=== PATIENT | female | born 1955 | race Caucasian/White ===

== ENCOUNTER 2019-01-23 16:56 | Inpatient (IN) | payer BC ==
[~2019-01-23] VITALS: Ht 170.2 cm; Wt 75.0 kg
[2019-01-23] MEDS ORDERED: AMLO10TA PO (17:32)
[2019-01-23] MEDS ORDERED: MULT1TAB74 PO (17:32)
[2019-01-23] MEDS ORDERED: METO50TA17 PO (17:32)
[2019-01-23] MEDS ORDERED: CLON0.1T PO (17:32)
[2019-01-23 17:50] LABS: ALANINE AMINOTRANSFERASE 30 U/L (12-78); ALBUMIN/GLOBULIN RATIO 0.6 (1.1-1.5); ALKALINE PHOSPHATASE 114 IU/L (46-116); ANION GAP 10 (8-16); ASPARTATE AMINO TRANSFERASE 23 U/L (10-37); BILIRUBIN,TOTAL 0.4 MG/DL (0.1-1.0); BLOOD UREA NITROGEN 6 MG/DL (7-18); BUN/CREATININE RATIO 11.1 (6.6-38.0); CALCIUM 9.5 MG/DL (8.5-10.1); CHLORIDE 92 MMOL/L (99-107); CREATININE 0.54 MG/DL (0.40-0.90); GLUCOSE 130 MG/DL (70-104); POTASSIUM 3.8 MMOL/L (3.5-5.1); SODIUM 126 MMOL/L (135-145); TOTAL CARBON DIOXIDE 23.6 MMOL/L (24-32); TOTAL PROTEIN 8.1 G/DL (6.4-8.2); eGFR > 90 ML/MIN
[2019-01-23] MEDS ORDERED: heparin 10,000 units/1 ML INJ IV PRN (17:50)
[2019-01-23] MEDS ORDERED: heparin 10,000 units/1 ML INJ IV ONE (17:50)
[2019-01-23 17:54] LABS: PARTIAL THROMBOPLASTIN TIME 31 SECONDS (22-32)
[2019-01-23 17:57] LABS: MAGNESIUM 1.7 MG/DL (1.5-2.4)
[2019-01-23] MEDS: heparin 25,000 UNIT/250ml bag 250 ML IV SCH (18:12)
[2019-01-23 18:13] LABS: BASOPHILS % (AUTO) 0.5 % (0-1); EOSINOPHILS % (AUTO) 0.1 % (0-6); HEMATOCRIT 38.1 % (35.0-45.0); HEMOGLOBIN 13.8 g/dl (12.0-16.0); LYMPHOCYTES # (AUTO) 1.5 X10'3 (1.1-4.8); LYMPHOCYTES % (AUTO) 16.3 % (21-51); MEAN CORPUSCULAR HEMOGLOBIN 33.9 PG (27.0-31.0); MEAN CORPUSCULAR HGB CONC 36.1 g/dL (33.0-36.5); MEAN CORPUSCULAR VOLUME 93.9 FL (78-98); MEAN PLATELET VOLUME 6.5 FL (7.4-10.4); MONOCYTES # (AUTO) 0.8 X10'3 (0-0.9); MONOCYTES % (AUTO) 9.1 % (2-12); NEUTROPHILS # (AUTO) 6.7 X10'3 (1.8-7.7); PLATELET COUNT 423 X10'3 (140-440); RED BLOOD COUNT 4.06 X10'6 (4.20-5.60); RED CELL DISTRIBUTION WIDTH 12.9 % (11.5-14.5)
[2019-01-23 18:58] LABS: PLATELET ESTIMATE NORMAL
[2019-01-23 18:59] LABS: POLYCHROMASIA FEW; SPHEROCYTES 2+
[2019-01-23] MEDS ORDERED: magnesium hydroxide 30ml (MOM) UD suspension PO PRN (19:35)
[2019-01-23] MEDS ORDERED: acetaminophen 325mg tablet PO PRN (19:35)
[2019-01-23] MEDS ORDERED: HYDROcodone/acetaminophen 5mg/325mg tablet PO PRN (19:35)
[2019-01-23] MEDS ORDERED: mag hydrox/Alum hydrox/simeth 30ml oral suspension PO PRN (19:35)
[2019-01-23] MEDS ORDERED: ondansetron/PF 4mg/2ml inj IV PRN (19:35)
[2019-01-23] MEDS ORDERED: morphine 2 MG/ML inj. syringe IV PRN (19:35)
[2019-01-23] MEDS: normal saline 1000ml 1,000 ML IV SCH ×2 (19:57→21:52)
[2019-01-23] MEDS ORDERED: non-formulary drug (Amlodipine Besylate 1 TABLET) PO SCH (21:00)
[2019-01-23] MEDS: amLODIPine 5mg tablet PO SCH (21:01)
[2019-01-23 21:30] VITALS: BP 172/73
[2019-01-23] MEDS: metoprolol tartrate 50mg tablet PO SCH (21:51)
--- NOTE | 2019-01-23 22:16 | NUR ---
RECEIVED PATIENT TO ROOM 4009C IN STABLE CONDITION. PATIENT HYPERTENSIVE. ADMINISTERED ORDERED DOSE OF LOPRESSOR. ASSISTED PATIENT STANDBY ASSIST TO BATHROOM AND BACK TO BED.
[2019-01-24] MEDS: heparin 25,000 UNIT/250ml bag 250 ML IV SCH (01:36)
[2019-01-24 05:00] VITALS: BP 174/72
--- NOTE | 2019-01-24 06:15 | NUR ---
Received patient report from Marina HERNANDEZ
--- NOTE | 2019-01-24 06:16 | NUR ---
REPORT GIVEN TO TRISTON HERNANDEZ
[2019-01-24 07:21] LABS: BASOPHILS # (AUTO) 0.1 X10'3 (0-0.2); BASOPHILS % (AUTO) 0.7 % (0-1); EOSINOPHILS % (AUTO) 0.5 % (0-6); LYMPHOCYTES # (AUTO) 1.7 X10'3 (1.1-4.8); LYMPHOCYTES % (AUTO) 16.8 % (21-51); MEAN CORPUSCULAR HEMOGLOBIN 33.2 PG (27.0-31.0); MEAN CORPUSCULAR VOLUME 94.8 FL (78-98); MEAN PLATELET VOLUME 6.5 FL (7.4-10.4); MONOCYTES # (AUTO) 1.2 X10'3 (0-0.9); MONOCYTES % (AUTO) 11.5 % (2-12); NEUTROPHILS # (AUTO) 7.2 X10'3 (1.8-7.7); NEUTROPHILS % (AUTO) 70.5 % (42-75); PLATELET COUNT 406 X10'3 (140-440); RED CELL DISTRIBUTION WIDTH 12.8 % (11.5-14.5); WHITE BLOOD COUNT 10.3 X10'3 (4.5-11.0)
[2019-01-24 07:35] LABS: ALANINE AMINOTRANSFERASE 28 U/L (12-78); ALBUMIN 2.8 G/DL (3.4-5.0); ALBUMIN/GLOBULIN RATIO 0.6 (1.1-1.5); ALKALINE PHOSPHATASE 108 IU/L (46-116); ANION GAP 11 (8-16); ASPARTATE AMINO TRANSFERASE 22 U/L (10-37); BILIRUBIN,TOTAL 0.3 MG/DL (0.1-1.0); BLOOD UREA NITROGEN 7 MG/DL (7-18); BUN/CREATININE RATIO 12.7 (6.6-38.0); CALCIUM 9.5 MG/DL (8.5-10.1); CHLORIDE 94 MMOL/L (99-107); CHOLESTEROL 169 MG/DL (0-200); CREATININE 0.55 MG/DL (0.40-0.90); GLUCOSE 135 MG/DL (70-104); HDL CHOLESTEROL 85 MG/DL (35-60); LDL CHOLESTEROL 68 MG/DL (50-100); POTASSIUM 3.7 MMOL/L (3.5-5.1); SODIUM 129 MMOL/L (135-145); TOTAL PROTEIN 7.8 G/DL (6.4-8.2); TRIGLYCERIDES 84 MG/DL (20-135); eGFR > 90 ML/MIN
--- NOTE | 2019-01-24 08:00 | NUR ---
PTT 60 no rate change in the heparin GTT.
[2019-01-24] MEDS: cloNIDine 0.1 mg tablet PO SCH (08:04)
[2019-01-24] MEDS: metoprolol tartrate 50mg tablet PO SCH ×2 (08:04→19:06)
[2019-01-24] MEDS ORDERED: midazolam 2 mg/2 ml injection IV PRN (09:50)
[2019-01-24] MEDS ORDERED: heparin 1,000 UNITS/NS 500ml 500 ML ICATH ONE (09:50)
[2019-01-24] MEDS ORDERED: fentaNYL/PF 50MCG/1 ML 2ML syringe IV PRN (09:50)
[2019-01-24] MEDS ORDERED: LIDOcaine 1%/PF 5ML 10 MG/ML VIAL SQ ONE (09:50)
[2019-01-24] MEDS ORDERED: LIDOcaine 1%/PF 5ML 10 MG/ML VIAL ONE ×3 (09:58→13:42)
[2019-01-24] MEDS ORDERED: iohexol 300mg/ml 100ml inj. ONE ×2 (09:58→12:07)
[2019-01-24] MEDS ORDERED: pneumococcal 23-VAL P-sac vacc 25 mcg/0.5ml vial IMVAC ONE (10:00)
[2019-01-24] MEDS ORDERED: heparin 1,000 UNITS/NS 500ml 500 ML ONE ×3 (10:14→13:22)
[2019-01-24] MEDS ORDERED: fentaNYL/PF 50MCG/1 ML 2ML syringe ONE ×2 (10:16→10:59)
[2019-01-24] MEDS ORDERED: midazolam 2 mg/2 ml injection ONE (10:16)
[2019-01-24] MEDS ORDERED: HYDROmorphone 1 mg/ml syringe ONE ×2 (11:33→12:28)
[2019-01-24] MEDS ORDERED: heparin 25,000 UNIT/250ml bag 250 ML IV ONE (12:07)
[2019-01-24] MEDS ORDERED: HYDROmorphone inj. 0.5 MG/0.5 ML DISP.SYRIN IV PRN (12:30)
--- NOTE | 2019-01-24 15:13 | NUR ---
Received patient from Angio. Angio called stated "R groin has no closure device, and L groin has a closure device."
--- NOTE | 2019-01-24 16:28 | NUR ---
Page to Dr. Muñiz MESSAGE: [id number] Melissa Jenkins Can I straight cath or place a morales in patient. She has to lay flat for 6 hours and currently is 999mls in bladder. Maria A Addendum: 01/24/19 at 1700 by Maria A Ko RN margie Lowe.
--- NOTE | 2019-01-24 17:00 | NUR ---
Page to Dr. Muñiz MESSAGE: [id number] Melissa Mojica I get a Lidocaine patch for the patient Maria A [id number] Addendum: 01/24/19 at 1700 by Maria A Ko RN Received orders
[2019-01-24 18:00] VITALS: BP 168/74
--- NOTE | 2019-01-24 18:26 | NUR ---
RECEIVED REPORT FROM TRISTON HERNANDEZ AND ASSUMED PATIENT CARE
--- NOTE | 2019-01-24 18:35 | NUR ---
Report to Marina HERNANDEZ
[2019-01-24] MEDS: piperacillin/tazo 3.375gm/50ml 50 ML IV SCH (18:44)
[2019-01-24] MEDS: LIDOcaine 5% patch TP SCH (19:06)
[2019-01-24] MEDS: amLODIPine 5mg tablet PO SCH (19:06)
[2019-01-24 22:00] VITALS: BP 161/73
--- NOTE | 2019-01-24 23:31 | NUR ---
NO RATE CHANGE REQUIRED FOR HEPARIN GTT AT THIS TIME
[2019-01-25] MEDS: piperacillin/tazo 3.375gm/50ml 50 ML IV SCH ×3 (00:53→15:44)
[2019-01-25] MEDS: HYDROcodone/acetaminophen 10/325mg tab PO PRN ×2 (04:42→13:57)
--- NOTE | 2019-01-25 05:10 | NUR ---
HEPARIN GTT THERAPEUTIC. NO RATE CHANGE.
[2019-01-25 05:34] LABS: ALANINE AMINOTRANSFERASE 34 U/L (12-78); ALBUMIN 2.9 G/DL (3.4-5.0); ALBUMIN/GLOBULIN RATIO 0.6 (1.1-1.5); ALKALINE PHOSPHATASE 109 IU/L (46-116); ANION GAP 11 (8-16); ASPARTATE AMINO TRANSFERASE 35 U/L (10-37); BILIRUBIN,TOTAL 0.3 MG/DL (0.1-1.0); BLOOD UREA NITROGEN 8 MG/DL (7-18); BUN/CREATININE RATIO 13.3 (6.6-38.0); CALCIUM 9.4 MG/DL (8.5-10.1); CHLORIDE 95 MMOL/L (99-107); GLUCOSE 128 MG/DL (70-104); POTASSIUM 3.5 MMOL/L (3.5-5.1); SODIUM 130 MMOL/L (135-145); TOTAL CARBON DIOXIDE 24.1 MMOL/L (24-32); TOTAL PROTEIN 7.9 G/DL (6.4-8.2); eGFR > 90 ML/MIN
[2019-01-25 05:40] LABS: BASOPHILS # (AUTO) 0.1 X10'3 (0-0.2); BASOPHILS % (AUTO) 0.9 % (0-1); EOSINOPHILS # (AUTO) 0.1 X10'3 (0-0.9); HEMATOCRIT 37.9 % (35.0-45.0); HEMOGLOBIN 13.1 g/dl (12.0-16.0); LYMPHOCYTES # (AUTO) 1.9 X10'3 (1.1-4.8); LYMPHOCYTES % (AUTO) 19.3 % (21-51); MEAN CORPUSCULAR HEMOGLOBIN 33.6 PG (27.0-31.0); MEAN CORPUSCULAR HGB CONC 34.6 g/dL (33.0-36.5); MEAN CORPUSCULAR VOLUME 96.9 FL (78-98); MEAN PLATELET VOLUME 6.5 FL (7.4-10.4); MONOCYTES # (AUTO) 0.9 X10'3 (0-0.9); MONOCYTES % (AUTO) 9.1 % (2-12); NEUTROPHILS % (AUTO) 69.7 % (42-75); PLATELET COUNT 368 X10'3 (140-440); RED BLOOD COUNT 3.91 X10'6 (4.20-5.60); RED CELL DISTRIBUTION WIDTH 12.6 % (11.5-14.5)
[2019-01-25 06:00] VITALS: BP 166/83
--- NOTE | 2019-01-25 06:13 | NUR ---
REPORT GIVEN TO RICCARDO HERNANDEZ
--- NOTE | 2019-01-25 06:30 | NUR ---
received report from shireen obando
[2019-01-25] MEDS: heparin 25,000 UNIT/250ml bag 250 ML IV SCH (08:37)
[2019-01-25] MEDS: cloNIDine 0.1 mg tablet PO SCH (08:39)
[2019-01-25] MEDS: metoprolol tartrate 50mg tablet PO SCH ×2 (08:39→20:37)
[2019-01-25] MEDS: LIDOcaine 5% patch TP SCH (08:43)
[2019-01-25 10:00] VITALS: BP 115/70
[2019-01-25] MEDS ORDERED: regadenoson 0.4mg/5ml syringe IV PRN (10:10)
[2019-01-25] MEDS ORDERED: nitroGLYCERIN 0.4mg SUBLingual tab SL PRN (10:10)
[2019-01-25] MEDS ORDERED: metoprolol tartrate 1mg/ml inj IV PRN (10:10)
[2019-01-25] MEDS ORDERED: aminophylline 250mg/10ml inj. IV PRN (10:10)
[2019-01-25 18:00] VITALS: BP 120/78
--- NOTE | 2019-01-25 18:22 | NUR ---
GAVE REPORT TO DAVID RAMOS
[2019-01-25] MEDS: normal saline 1000ml 1,000 ML IV SCH (19:31)
[2019-01-25] MEDS: amLODIPine 5mg tablet PO SCH (20:39)
[2019-01-25 23:00] VITALS: BP 162/62
[2019-01-26] VITALS (7 sets, daily range): BP systolic 123–159; BP diastolic 76–88
[2019-01-26] MEDS: heparin 25,000 UNIT/250ml bag 250 ML IV SCH ×2 (02:43→23:10)
[2019-01-26 05:57] LABS: BASOPHILS # (AUTO) 0.1 X10'3 (0-0.2); BASOPHILS % (AUTO) 0.7 % (0-1); EOSINOPHILS % (AUTO) 0.1 % (0-6); HEMATOCRIT 37.5 % (35.0-45.0); HEMOGLOBIN 12.9 g/dl (12.0-16.0); LYMPHOCYTES # (AUTO) 1.2 X10'3 (1.1-4.8); LYMPHOCYTES % (AUTO) 10.8 % (21-51); MEAN CORPUSCULAR HEMOGLOBIN 32.9 PG (27.0-31.0); MEAN CORPUSCULAR HGB CONC 34.4 g/dL (33.0-36.5); MEAN CORPUSCULAR VOLUME 95.7 FL (78-98); MEAN PLATELET VOLUME 6.6 FL (7.4-10.4); MONOCYTES # (AUTO) 0.8 X10'3 (0-0.9); MONOCYTES % (AUTO) 7.2 % (2-12); NEUTROPHILS # (AUTO) 8.9 X10'3 (1.8-7.7); NEUTROPHILS % (AUTO) 81.2 % (42-75); PLATELET COUNT 359 X10'3 (140-440); RED BLOOD COUNT 3.91 X10'6 (4.20-5.60); RED CELL DISTRIBUTION WIDTH 12.7 % (11.5-14.5)
[2019-01-26 06:13] LABS: ALANINE AMINOTRANSFERASE 33 U/L (12-78); ALBUMIN/GLOBULIN RATIO 0.6 (1.1-1.5); ALKALINE PHOSPHATASE 111 IU/L (46-116); ANION GAP 12 (8-16); ASPARTATE AMINO TRANSFERASE 32 U/L (10-37); BILIRUBIN,TOTAL 0.4 MG/DL (0.1-1.0); BLOOD UREA NITROGEN 7 MG/DL (7-18); BUN/CREATININE RATIO 11.5 (6.6-38.0); CALCIUM 9.6 MG/DL (8.5-10.1); CHLORIDE 95 MMOL/L (99-107); CREATININE 0.61 MG/DL (0.40-0.90); GLUCOSE 173 MG/DL (70-104); POTASSIUM 3.3 MMOL/L (3.5-5.1); SODIUM 130 MMOL/L (135-145); TOTAL CARBON DIOXIDE 22.8 MMOL/L (24-32); eGFR > 90 ML/MIN
[2019-01-26] MEDS: piperacillin/tazo 3.375gm/50ml 50 ML IV SCH ×3 (08:52→16:00)
[2019-01-26] MEDS: LIDOcaine 5% patch TP SCH (08:53)
[2019-01-26] MEDS: metoprolol tartrate 50mg tablet PO SCH ×2 (08:53→23:54)
[2019-01-26] MEDS: cloNIDine 0.1 mg tablet PO SCH (08:54)
[2019-01-26] MEDS ORDERED: LIDOcaine 1%/PF 5ML 10 MG/ML VIAL ONE (11:11)
[2019-01-26] MEDS ORDERED: iohexol 300mg/ml 100ml inj. ONE ×3 (11:12→18:32)
[2019-01-26] MEDS ORDERED: heparin 1,000 UNITS/NS 500ml 500 ML ONE ×4 (11:12→19:16)
[2019-01-26] MEDS ORDERED: fentaNYL/PF 50MCG/1 ML 2ML syringe ONE ×3 (11:23→15:11)
[2019-01-26] MEDS ORDERED: midazolam 2 mg/2 ml injection ONE ×2 (11:23→14:42)
[2019-01-26] MEDS ORDERED: midazolam 2 mg/2 ml injection IV PRN (13:50)
[2019-01-26] MEDS ORDERED: LIDOcaine 1%/PF 5ML 10 MG/ML VIAL SQ ONE (13:50)
[2019-01-26] MEDS ORDERED: heparin 1,000 UNITS/NS 500ml 500 ML ICATH ONE (13:50)
[2019-01-26] MEDS ORDERED: fentaNYL/PF 50MCG/1 ML 2ML syringe IV PRN (13:50)
[2019-01-26] MEDS ORDERED: HYDROmorphone 1 mg/ml syringe ONE ×3 (16:11→17:43)
[2019-01-26] MEDS ORDERED: heparin 1,000unit/ml 10ml vial 10 ML ONE (16:38)
[2019-01-26] MEDS ORDERED: ondansetron/PF 4mg/2ml inj ONE (17:22)
[2019-01-26] MEDS ORDERED: diphenhydrAMINE 50 mg/ml inj ONE (17:46)
--- NOTE | 2019-01-26 18:17 | NUR ---
PATIENT REPORT RECEIVED FROM VINCENZO HERNANDEZ.
[2019-01-26] MEDS ORDERED: nitroGLYCERIN-Tridil 50MG/D5W 250 ML IV ONE (19:20)
[2019-01-26] MEDS: lactobacillus rhamnosus 10,000 MMU CELLS/CAPSULE PO SCH (20:00)
[2019-01-26] MEDS: amLODIPine 5mg tablet PO SCH (23:54)
[2019-01-27] VITALS (16 sets, daily range): BP systolic 94–174; BP diastolic 56–85
[2019-01-27] MEDS: piperacillin/tazo 3.375gm/50ml 50 ML IV SCH ×3 (00:11→16:37)
[2019-01-27] MEDS: heparin 25,000 UNIT/250ml bag 250 ML IV SCH ×2 (00:17→16:36)
[2019-01-27 05:55] LABS: BASOPHILS # (AUTO) 0.1 X10'3 (0-0.2); BASOPHILS % (AUTO) 0.8 % (0-1); EOSINOPHILS % (AUTO) 0.1 % (0-6); HEMATOCRIT 33.6 % (35.0-45.0); HEMOGLOBIN 11.9 g/dl (12.0-16.0); LYMPHOCYTES # (AUTO) 1.4 X10'3 (1.1-4.8); LYMPHOCYTES % (AUTO) 11.3 % (21-51); MEAN CORPUSCULAR HEMOGLOBIN 33.7 PG (27.0-31.0); MEAN CORPUSCULAR HGB CONC 35.3 g/dL (33.0-36.5); MEAN CORPUSCULAR VOLUME 95.4 FL (78-98); MEAN PLATELET VOLUME 6.2 FL (7.4-10.4); MONOCYTES # (AUTO) 1.3 X10'3 (0-0.9); MONOCYTES % (AUTO) 11.1 % (2-12); NEUTROPHILS # (AUTO) 9.2 X10'3 (1.8-7.7); NEUTROPHILS % (AUTO) 76.7 % (42-75); PLATELET COUNT 341 X10'3 (140-440); RED BLOOD COUNT 3.52 X10'6 (4.20-5.60); RED CELL DISTRIBUTION WIDTH 12.8 % (11.5-14.5)
[2019-01-27 06:17] LABS: ALANINE AMINOTRANSFERASE 40 U/L (12-78); ALBUMIN 2.7 G/DL (3.4-5.0); ALBUMIN/GLOBULIN RATIO 0.5 (1.1-1.5); ALKALINE PHOSPHATASE 120 IU/L (46-116); ANION GAP 14 (8-16); ASPARTATE AMINO TRANSFERASE 66 U/L (10-37); BILIRUBIN,TOTAL 0.5 MG/DL (0.1-1.0); BLOOD UREA NITROGEN 7 MG/DL (7-18); BUN/CREATININE RATIO 10.9 (6.6-38.0); CALCIUM 9.3 MG/DL (8.5-10.1); CHLORIDE 98 MMOL/L (99-107); CREATININE 0.64 MG/DL (0.40-0.90); GLUCOSE 145 MG/DL (70-104); POTASSIUM 3.5 MMOL/L (3.5-5.1); SODIUM 134 MMOL/L (135-145); TOTAL PROTEIN 7.7 G/DL (6.4-8.2); eGFR > 90 ML/MIN
--- NOTE | 2019-01-27 06:30 | NUR ---
No rate change on Heparin drip. PTT 63; therapeutic range.
[2019-01-27] MEDS: dextrose 5%-1/2 normal saline 1,000 ML IV SCH ×2 (07:55→16:37)
[2019-01-27] MEDS: cloNIDine 0.1 mg tablet PO SCH (07:56)
[2019-01-27] MEDS: metoprolol tartrate 50mg tablet PO SCH ×2 (07:57→20:07)
[2019-01-27] MEDS: lactobacillus rhamnosus 10,000 MMU CELLS/CAPSULE PO SCH ×2 (07:58→20:07)
[2019-01-27] MEDS: LIDOcaine 5% patch TP SCH (08:00)
[2019-01-27] MEDS ORDERED: aminophylline inj. 10 ML IV ONE (09:34)
[2019-01-27] MEDS ORDERED: regadenoson 0.4mg/5ml syringe IV ONE (09:34)
--- NOTE | 2019-01-27 10:24 | NUR ---
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 Pt with an active regular diet order and documented with 75-100% PO intake however documented as NPO right now pending angiogram. [facility] 01/23. Pt has increased protein needs r/t dx; will assess need for ONS s/p angiogram following diet advancement. Recommendations: 1) Resume regular diet as medically indicated 2) Monitor need for ONS 3) Monitor need for additional bowel care 4) Wt per rx Addendum: 01/27/19 at [address] Amended: Links added.
--- NOTE | 2019-01-27 18:00 | NUR ---
Problems reprioritized. Patient report given, questions answered & plan of care reviewed with Kae Pop RN.
[2019-01-27] MEDS ORDERED: ringers solution, lacted 1,000 ML IV SCH (18:44)
[2019-01-27] MEDS ORDERED: ringers solution, lacted 1,000 ML IV ONE (18:44)
[2019-01-27] MEDS ORDERED: morphine 4 MG/ML inj SYRINge IV PRN ×2 (18:45)
[2019-01-27] MEDS ORDERED: fentaNYL/PF 50MCG/1 ML 2ML syringe IV PRN ×2 (18:45)
[2019-01-27] MEDS ORDERED: labetalol 20mg/4ml (5mg/ml) syringe IV PRN (18:45)
[2019-01-27] MEDS ORDERED: ondansetron/PF 4mg/2ml inj IV PRN (18:45)
[2019-01-27] MEDS ORDERED: hydrALAZINE 20mg/ml inj. IV PRN (18:45)
[2019-01-27] MEDS: amLODIPine 5mg tablet PO SCH (20:07)
--- NOTE | 2019-01-27 20:53 | NUR ---
Patient left floor to OR for surg. Patient took all belongings.
[2019-01-27] MEDS ORDERED: sevoflurane 250ml liquid IH ONE (21:35)
[2019-01-27] MEDS ORDERED: rocuronium 10mg/ml inj IV ONE ×2 (21:35→23:54)
[2019-01-27] MEDS ORDERED: fentaNYL /PF 50mcg/ml 5ml ampule ONE (21:36)
[2019-01-27] MEDS ORDERED: MIDAZolam 5mg/5ml vial ONE (21:36)
[2019-01-27] MEDS ORDERED: ondansetron/PF 4mg/2ml inj ONE (21:59)
[2019-01-27] MEDS ORDERED: heparin 1,000unit/ml 10ml vial 10 ML ONE ×2 (21:59→23:43)
[2019-01-27] MEDS ORDERED: dexamethasone sod phosphate 4mg/ml inj. ONE (21:59)
[2019-01-27] MEDS ORDERED: ceFAZolin 1000mg inj ONE (22:04)
[2019-01-27] MEDS ORDERED: heparin 10,000 units/1 ML INJ ONE (22:04)
[2019-01-27] MEDS ORDERED: iohexol 300 MG/1 ML 50ml polymer ONE (22:04)
[2019-01-27 22:40] LABS: INR 1.1 INR; PARTIAL THROMBOPLASTIN TIME 63 SECONDS (22-32)
[2019-01-27] MEDS ORDERED: propofol inj 20 ML IV ONE (23:54)
[2019-01-27] MEDS ORDERED: LIDOcaine 2% (20mg/ml) 5ml vial ONE (23:54)
[2019-01-28] VITALS (23 sets, daily range): BP systolic 84–135; BP diastolic 60–86
[2019-01-28] MEDS ORDERED: iohexol 300 MG/1 ML 50ml polymer ONE (00:32)
[2019-01-28 01:06] LABS: INR 1.1 INR
[2019-01-28 01:07] LABS: PARTIAL THROMBOPLASTIN TIME 144 SECONDS (22-32)
--- NOTE | 2019-01-28 01:33 | NUR ---
Received from OR via , accompanied by Anesthesiologist and report given by Anesthesiolgist. PATIENT ARRIVED TO PACU ON ICU BED FROM OR, PATIENT O2 SAT 98% ON 10L MASK, VSS CHARTED, ART LINE TO RIGHT RADIAL WRIST NOTED, 22 GAUGE PIV NOTED TO RIGHT AC AND TO GAUGE TO RIGHT FA NOTED, HEP GTT STOPPED IN OR PER DR. PERLA WILL RE-CHECK PTT AT 0200 AND WILL RE-START GTT WHEN PTT AT 75, ISLAND DRESSING TO LEFT LOWER EXTREMITY CDI, PROVEN WV IN PLACE TO RIGHT GROIN NO OUTPUT NOTED, DOPPLER PULSE NOTED TO LEFT FOOT.
[2019-01-28] MEDS ORDERED: ondansetron/PF 4mg/2ml inj IV PRN (01:35)
--- NOTE | 2019-01-28 02:03 | NUR ---
PATIENT TRANSFER CRITERIA MET. REPORT CALLED TO JOHN IN ICU ALL QUESTIONS AND CONCERNS ADDRESSED. VSS CHARTED, DRESSING TO LEFT LOWER EXTREMITY CDI, PROVENA WV IN PLACE, ART LINE IN PLACE, IVF INFUSING ORDERED. PER RESULTS PENDING, HEAT TREATER HEAD MADE AWARE. DOP PULSE NOTED TO LEFT LOWER EXTREMITY
--- NOTE | 2019-01-28 02:30 | NUR ---
pt arrived to unit at 0225. Report received from Rosmery Jensen RN. vital signs WNL's on arrival. very confused. not oriented to place or time. pulling to oxygen sensor. multiple attempts to reorient, but quickly becomes confused again. tried to get out of bed. in close observation of RN at this time. continue to monitor. Doppler pulse to Left foot... posterior tibial present with Doppler. dorsalis pedis was very difficult to find. took several minutes, but located a weak/thready pulse with the Doppler. marked with sharpy. continue to monitor.
[2019-01-28 02:36] LABS: PARTIAL THROMBOPLASTIN TIME 41 SECONDS (22-32)
--- NOTE | 2019-01-28 03:20 | NUR ---
Heparin PTT resulted and was 41. therefore, per dr Yeager order, Heparin drip restarted at 1500units/hr, the the same dose it was running at prior to the OR. will reassess PTT after 2 hours.
[2019-01-28] MEDS: heparin 25,000 UNIT/250ml bag 250 ML IV SCH ×2 (03:27→13:03)
[2019-01-28] MEDS: potassium CL 20mEq in D5-1/2NS 1,000 ML IV SCH ×4 (03:34→19:55)
[2019-01-28] MEDS: normal saline 1000ml 1,000 ML IV SCH (03:35)
[2019-01-28] MEDS: piperacillin/tazo 3.375gm/50ml 50 ML IV SCH ×3 (04:10→16:03)
[2019-01-28 05:24] LABS: BASOPHILS % (AUTO) 0.2 % (0-1); EOSINOPHILS % (AUTO) 0 % (0-6); HEMATOCRIT 28.8 % (35.0-45.0); HEMOGLOBIN 9.9 g/dl (12.0-16.0); LYMPHOCYTES # (AUTO) 0.6 X10'3 (1.1-4.8); LYMPHOCYTES % (AUTO) 5.4 % (21-51); MEAN CORPUSCULAR HEMOGLOBIN 33.3 PG (27.0-31.0); MEAN CORPUSCULAR HGB CONC 34.4 g/dL (33.0-36.5); MEAN CORPUSCULAR VOLUME 96.9 FL (78-98); MONOCYTES # (AUTO) 0.6 X10'3 (0-0.9); MONOCYTES % (AUTO) 5.5 % (2-12); NEUTROPHILS # (AUTO) 9.9 X10'3 (1.8-7.7); NEUTROPHILS % (AUTO) 88.9 % (42-75); PLATELET COUNT 292 X10'3 (140-440); RED BLOOD COUNT 2.98 X10'6 (4.20-5.60); RED CELL DISTRIBUTION WIDTH 12.9 % (11.5-14.5); WHITE BLOOD COUNT 11.1 X10'3 (4.5-11.0)
--- NOTE | 2019-01-28 05:29 | NUR ---
PTT is now 47. therepeutic. no change in rate, or bolus indicated. continues to infuse at 1500units/hr. reassess PTT in 6 hrs.
[2019-01-28 05:39] LABS: ALANINE AMINOTRANSFERASE 32 U/L (12-78); ALBUMIN 2.3 G/DL (3.4-5.0); ALBUMIN/GLOBULIN RATIO 0.5 (1.1-1.5); ALKALINE PHOSPHATASE 93 IU/L (46-116); ANION GAP 11 (8-16); ASPARTATE AMINO TRANSFERASE 66 U/L (10-37); BILIRUBIN,TOTAL 0.3 MG/DL (0.1-1.0); BLOOD UREA NITROGEN 9 MG/DL (7-18); BUN/CREATININE RATIO 13.2 (6.6-38.0); CALCIUM 8.7 MG/DL (8.5-10.1); CHLORIDE 100 MMOL/L (99-107); CREATININE 0.68 MG/DL (0.40-0.90); GLUCOSE 187 MG/DL (70-104); POTASSIUM 3.3 MMOL/L (3.5-5.1); SODIUM 136 MMOL/L (135-145); TOTAL CARBON DIOXIDE 24.6 MMOL/L (24-32); TOTAL PROTEIN 6.8 G/DL (6.4-8.2); eGFR 87 ML/MIN
--- NOTE | 2019-01-28 06:52 | NUR ---
Problems reprioritized. Patient report given, questions answered & plan of care reviewed with Romy HERNANDEZ.
[2019-01-28] MEDS: lactobacillus rhamnosus 10,000 MMU CELLS/CAPSULE PO SCH ×2 (08:59→19:56)
[2019-01-28] MEDS: cloNIDine 0.1 mg tablet PO SCH (08:59)
[2019-01-28] MEDS: clopidogrel 75mg tablet PO SCH (08:59)
[2019-01-28] MEDS: LIDOcaine 5% patch TP SCH (09:00)
[2019-01-28] MEDS: metoprolol tartrate 50mg tablet PO SCH ×2 (09:00→19:56)
[2019-01-28] MEDS ORDERED: temazepam 15mg capsule PO PRN (13:55)
--- NOTE | 2019-01-28 16:31 | NUR ---
getting report from icu
--- NOTE | 2019-01-28 16:40 | NUR ---
Problems reprioritized. Patient report given, questions answered & plan of care reviewed with Tierra HERNANDEZ. Patient transferred to surgical floor via bed with belongings. Patient transferred to surgical bed and oriented to room. RN at bedside.
[2019-01-28 17:36] LABS: PARTIAL THROMBOPLASTIN TIME 58 SECONDS (22-32)
--- NOTE | 2019-01-28 18:39 | NUR ---
Problems reprioritized. Patient report given, questions answered & plan of care reviewed with NATALYA HERNANDEZ.
--- NOTE | 2019-01-28 18:45 | NUR ---
Patient in room [facility]. I have received report from Tierra HERNANDEZ and had the opportunity to ask questions and assume patient care.
--- NOTE | 2019-01-28 18:47 | NUR ---
Patient in room [facility]. I have received report from Tierra HERNANDEZ and had the opportunity to ask questions and assume patient care with Arleth HERNANDEZ and Cathi HERNANDEZ. Patient is a new admit from ICU
[2019-01-28] MEDS: apixaban 5mg tablet PO SCH (19:57)
[2019-01-28] MEDS: amLODIPine 5mg tablet PO SCH (21:11)
[2019-01-29] VITALS: BP 96/56
[2019-01-29] MEDS: piperacillin/tazo 3.375gm/50ml 50 ML IV SCH ×3 (00:16→16:50)
[2019-01-29] MEDS: potassium CL 20mEq in D5-1/2NS 1,000 ML IV SCH ×2 (03:18→16:54)
[2019-01-29] MEDS: HYDROcodone/acetaminophen 10/325mg tab PO PRN ×2 (04:56→23:07)
[2019-01-29 06:01] LABS: BASOPHILS % (AUTO) 0.2 % (0-1); EOSINOPHILS % (AUTO) 0.1 % (0-6); HEMATOCRIT 24.2 % (35.0-45.0); HEMOGLOBIN 8.4 g/dl (12.0-16.0); LYMPHOCYTES # (AUTO) 1.1 X10'3 (1.1-4.8); LYMPHOCYTES % (AUTO) 8.6 % (21-51); MEAN CORPUSCULAR HEMOGLOBIN 33.5 PG (27.0-31.0); MEAN CORPUSCULAR HGB CONC 34.9 g/dL (33.0-36.5); MEAN PLATELET VOLUME 6.9 FL (7.4-10.4); MONOCYTES # (AUTO) 1.6 X10'3 (0-0.9); MONOCYTES % (AUTO) 12.8 % (2-12); NEUTROPHILS # (AUTO) 9.5 X10'3 (1.8-7.7); NEUTROPHILS % (AUTO) 78.3 % (42-75); PLATELET COUNT 260 X10'3 (140-440); RED BLOOD COUNT 2.52 X10'6 (4.20-5.60); RED CELL DISTRIBUTION WIDTH 12.7 % (11.5-14.5); WHITE BLOOD COUNT 12.2 X10'3 (4.5-11.0)
[2019-01-29 06:10] LABS: ALBUMIN 2.1 G/DL (3.4-5.0); ANION GAP 9 (8-16); BLOOD UREA NITROGEN 3 MG/DL (7-18); BUN/CREATININE RATIO 4.8 (6.6-38.0); CALCIUM 8.4 MG/DL (8.5-10.1); CHLORIDE 97 MMOL/L (99-107); CREATININE 0.62 MG/DL (0.40-0.90); GLUCOSE 171 MG/DL (70-104); POTASSIUM 3.4 MMOL/L (3.5-5.1); SODIUM 129 MMOL/L (135-145); TOTAL CARBON DIOXIDE 22.8 MMOL/L (24-32); eGFR > 90 ML/MIN
--- NOTE | 2019-01-29 06:25 | NUR ---
Problems reprioritized. Patient report given to Noni HERNANDEZ, questions answered & plan of care reviewed with Arleth HERNANDEZ and Cathi HERNANDEZ. Patient is resting and denies having pain.
--- NOTE | 2019-01-29 06:25 | NUR ---
Gave report to oNni HERNANDEZ with Prudence RN pt is resting on RA in no apparent distress, call light and items of freq use within reach.
[2019-01-29 07:00] VITALS: BP 120/74
[2019-01-29] MEDS: apixaban 5mg tablet PO SCH ×2 (08:50→20:04)
[2019-01-29] MEDS: lactobacillus rhamnosus 10,000 MMU CELLS/CAPSULE PO SCH ×2 (08:50→20:03)
[2019-01-29] MEDS: cloNIDine 0.1 mg tablet PO SCH (08:50)
[2019-01-29] MEDS: metoprolol tartrate 50mg tablet PO SCH ×2 (08:52→20:04)
[2019-01-29] MEDS: LIDOcaine 5% patch TP SCH (08:52)
[2019-01-29] MEDS: clopidogrel 75mg tablet PO SCH (08:52)
[2019-01-29 11:00] VITALS: BP 123/71
--- NOTE | 2019-01-29 18:30 | NUR ---
Patient in room [facility]. I have received report from DAVID Cheney and had the opportunity to ask questions and assume patient care.
[2019-01-29 19:00] VITALS: BP 134/65
[2019-01-29] MEDS: normal saline 1000ml 1,000 ML IV SCH (19:31)
[2019-01-29 20:55] VITALS: BP 95/66
[2019-01-29] MEDS: amLODIPine 5mg tablet PO SCH (20:59)
[2019-01-29 23:30] VITALS: BP 121/73
[2019-01-30] MEDS: piperacillin/tazo 3.375gm/50ml 50 ML IV SCH ×4 (00:28→23:12)
[2019-01-30 05:37] LABS: BASOPHILS % (AUTO) 0.2 % (0-1); EOSINOPHILS # (AUTO) 0.1 X10'3 (0-0.9); EOSINOPHILS % (AUTO) 1.3 % (0-6); HEMATOCRIT 23.4 % (35.0-45.0); HEMOGLOBIN 8.2 g/dl (12.0-16.0); LYMPHOCYTES # (AUTO) 1.4 X10'3 (1.1-4.8); LYMPHOCYTES % (AUTO) 12.4 % (21-51); MEAN CORPUSCULAR HEMOGLOBIN 33.7 PG (27.0-31.0); MEAN CORPUSCULAR HGB CONC 35.1 g/dL (33.0-36.5); MEAN CORPUSCULAR VOLUME 96.1 FL (78-98); MEAN PLATELET VOLUME 7.1 FL (7.4-10.4); MONOCYTES # (AUTO) 1.6 X10'3 (0-0.9); MONOCYTES % (AUTO) 14.3 % (2-12); NEUTROPHILS % (AUTO) 71.8 % (42-75); PLATELET COUNT 290 X10'3 (140-440); RED BLOOD COUNT 2.43 X10'6 (4.20-5.60); RED CELL DISTRIBUTION WIDTH 12.6 % (11.5-14.5); WHITE BLOOD COUNT 11.1 X10'3 (4.5-11.0)
[2019-01-30 05:53] LABS: ANION GAP 9 (8-16); BLOOD UREA NITROGEN 4 MG/DL (7-18); BUN/CREATININE RATIO 6.2 (6.6-38.0); CHLORIDE 97 MMOL/L (99-107); CREATININE 0.65 MG/DL (0.40-0.90); GLUCOSE 122 MG/DL (70-104); POTASSIUM 3.7 MMOL/L (3.5-5.1); SODIUM 128 MMOL/L (135-145); TOTAL CARBON DIOXIDE 22.1 MMOL/L (24-32); eGFR > 90 ML/MIN
--- NOTE | 2019-01-30 06:30 | NUR ---
checked q1hr; slept at long intervals with rep even and unlabored; pt states she slept well after the pain pill; reminded to use the IS q1hr w/a; continues to have a moist non-productive cough; no changes from earlier notes; report given to DAVID Cheney
[2019-01-30] MEDS: apixaban 5mg tablet PO SCH ×2 (08:20→20:25)
[2019-01-30] MEDS: lactobacillus rhamnosus 10,000 MMU CELLS/CAPSULE PO SCH ×2 (08:20→20:25)
[2019-01-30] MEDS: clopidogrel 75mg tablet PO SCH (08:20)
[2019-01-30] MEDS: LIDOcaine 5% patch TP SCH (08:20)
[2019-01-30] MEDS: cloNIDine 0.1 mg tablet PO SCH (08:22)
[2019-01-30] MEDS: metoprolol tartrate 50mg tablet PO SCH ×2 (08:23→20:00)
[2019-01-30] MEDS ORDERED: pneumococcal 23-VAL P-sac vacc 25 mcg/0.5ml vial IMVAC ONE (10:00)
[2019-01-30] MEDS: sodium chloride 1gm tablet PO SCH ×3 (13:00→20:25)
[2019-01-30 18:40] VITALS: BP 94/64
[2019-01-30] MEDS: amLODIPine 5mg tablet PO SCH (20:18)
[2019-01-30] MEDS: HYDROcodone/acetaminophen 10/325mg tab PO PRN (20:29)
[2019-01-31] VITALS: BP 108/65
[2019-01-31 05:24] LABS: ANION GAP 10 (8-16); BLOOD UREA NITROGEN 8 MG/DL (7-18); BUN/CREATININE RATIO 11.8 (6.6-38.0); CALCIUM 8.9 MG/DL (8.5-10.1); CHLORIDE 98 MMOL/L (99-107); CREATININE 0.68 MG/DL (0.40-0.90); GLUCOSE 136 MG/DL (70-104); POTASSIUM 3.4 MMOL/L (3.5-5.1); SODIUM 132 MMOL/L (135-145); TOTAL CARBON DIOXIDE 23.9 MMOL/L (24-32); eGFR 87 ML/MIN
[2019-01-31 05:44] LABS: BASOPHILS # (AUTO) 0.1 X10'3 (0-0.2); BASOPHILS % (AUTO) 1.1 % (0-1); EOSINOPHILS # (AUTO) 0.1 X10'3 (0-0.9); EOSINOPHILS % (AUTO) 1.3 % (0-6); HEMATOCRIT 24.8 % (35.0-45.0); HEMOGLOBIN 8.8 g/dl (12.0-16.0); LYMPHOCYTES # (AUTO) 1.1 X10'3 (1.1-4.8); LYMPHOCYTES % (AUTO) 11.1 % (21-51); MEAN CORPUSCULAR HEMOGLOBIN 34.2 PG (27.0-31.0); MEAN CORPUSCULAR HGB CONC 35.5 g/dL (33.0-36.5); MEAN CORPUSCULAR VOLUME 96.4 FL (78-98); MEAN PLATELET VOLUME 7.1 FL (7.4-10.4); MONOCYTES # (AUTO) 1.1 X10'3 (0-0.9); MONOCYTES % (AUTO) 11.8 % (2-12); NEUTROPHILS # (AUTO) 7.3 X10'3 (1.8-7.7); NEUTROPHILS % (AUTO) 74.7 % (42-75); PLATELET COUNT 300 X10'3 (140-440); RED BLOOD COUNT 2.58 X10'6 (4.20-5.60); RED CELL DISTRIBUTION WIDTH 13.1 % (11.5-14.5); WHITE BLOOD COUNT 9.7 X10'3 (4.5-11.0)
--- NOTE | 2019-01-31 06:18 | NUR ---
Patient in room [facility] 354. I have received report from DAVID Galloway and had the opportunity to ask questions and assume patient care.
--- NOTE | 2019-01-31 06:18 | NUR ---
Problems reprioritized. Patient report given, questions answered & plan of care reviewed with MANUEL. Addendum: 01/31/19 at 0619 by Saji Deutsch RN Amended: Links added.
--- NOTE | 2019-01-31 06:25 | NUR ---
Patient in room [facility] 354. I have received report from DAVID SAAVEDRA and had the opportunity to ask questions and assume patient care.
[2019-01-31 07:08] VITALS: BP 115/77
[2019-01-31] MEDS: lactobacillus rhamnosus 10,000 MMU CELLS/CAPSULE PO SCH ×2 (07:45→21:11)
[2019-01-31] MEDS: LIDOcaine 5% patch TP SCH (07:45)
[2019-01-31] MEDS: clopidogrel 75mg tablet PO SCH (07:45)
[2019-01-31] MEDS: piperacillin/tazo 3.375gm/50ml 50 ML IV SCH (07:45)
[2019-01-31] MEDS: metoprolol tartrate 50mg tablet PO SCH ×2 (07:46→21:12)
[2019-01-31] MEDS: cloNIDine 0.1 mg tablet PO SCH (07:46)
[2019-01-31] MEDS: sodium chloride 1gm tablet PO SCH (07:46)
[2019-01-31] MEDS: apixaban 5mg tablet PO SCH ×2 (07:46→21:12)
[2019-01-31] MEDS: HYDROcodone/acetaminophen 10/325mg tab PO PRN ×3 (07:48→23:42)
[2019-01-31 11:30] VITALS: BP 98/69
[2019-01-31] MEDS ORDERED: potassium Cl 20 mEq SR tablet PO ONE (12:05)
--- NOTE | 2019-01-31 15:38 | NUR ---
Dr Yeager rounded OK to DC patients morales. Would like Infection controll to see patient to see if she will need 4-6 weeks of IV abx or PO abx. If patient needs IV abx she will need to go to rehab. If patient gets PO abx she will need home health and physical therapy. When Discharged DC Provena vac and patient to follow up with Dr Yeager in 1 week .
--- NOTE | 2019-01-31 16:13 | NUR ---
Student documentation: I have reviewed and agree with all interventions, assessments performed and documented by Sunita student nurse.
--- NOTE | 2019-01-31 17:00 | NUR ---
FC DC'd at 1645. Cannula intact. Pt tolerated well. Pt provided with bedside commode and instructed to attempt voiding every 1-2 hours. Will continue to monitor.
[2019-01-31] MEDS: amox tr/potassium clavulanate 875/125mg TAB PO SCH (17:02)
--- NOTE | 2019-01-31 18:21 | NUR ---
Problems reprioritized. Patient report given, questions answered & plan of care reviewed with DAVID Galloway.
[2019-01-31 18:50] VITALS: BP 118/72
[2019-01-31] MEDS: amLODIPine 5mg tablet PO SCH (21:12)
[2019-01-31] MEDS: normal saline 1000ml 1,000 ML IV SCH (21:14)
[2019-02-01] VITALS: BP 112/76
[2019-02-01 05:41] LABS: BASOPHILS # (AUTO) 0.1 X10'3 (0-0.2); BASOPHILS % (AUTO) 0.9 % (0-1); EOSINOPHILS # (AUTO) 0.3 X10'3 (0-0.9); EOSINOPHILS % (AUTO) 3.2 % (0-6); HEMATOCRIT 24.1 % (35.0-45.0); HEMOGLOBIN 8.4 g/dl (12.0-16.0); LYMPHOCYTES # (AUTO) 1.5 X10'3 (1.1-4.8); LYMPHOCYTES % (AUTO) 15.5 % (21-51); MEAN CORPUSCULAR HEMOGLOBIN 33.5 PG (27.0-31.0); MEAN CORPUSCULAR HGB CONC 34.9 g/dL (33.0-36.5); MEAN CORPUSCULAR VOLUME 95.8 FL (78-98); MEAN PLATELET VOLUME 6.8 FL (7.4-10.4); MONOCYTES # (AUTO) 1.4 X10'3 (0-0.9); NEUTROPHILS # (AUTO) 6.6 X10'3 (1.8-7.7); NEUTROPHILS % (AUTO) 66.4 % (42-75); PLATELET COUNT 363 X10'3 (140-440); RED BLOOD COUNT 2.51 X10'6 (4.20-5.60); RED CELL DISTRIBUTION WIDTH 12.8 % (11.5-14.5); WHITE BLOOD COUNT 9.9 X10'3 (4.5-11.0)
[2019-02-01 05:47] LABS: ALBUMIN 2.1 G/DL (3.4-5.0); ANION GAP 10 (8-16); BLOOD UREA NITROGEN 10 MG/DL (7-18); BUN/CREATININE RATIO 15.2 (6.6-38.0); CALCIUM 9.5 MG/DL (8.5-10.1); CHLORIDE 98 MMOL/L (99-107); CREATININE 0.66 MG/DL (0.40-0.90); GLUCOSE 130 MG/DL (70-104); POTASSIUM 4.2 MMOL/L (3.5-5.1); SODIUM 130 MMOL/L (135-145); TOTAL CARBON DIOXIDE 22.3 MMOL/L (24-32); eGFR 90 ML/MIN
--- NOTE | 2019-02-01 06:15 | NUR ---
Problems reprioritized. Patient report given, questions answered & plan of care reviewed with MANUEL. Addendum: 02/01/19 at 0615 by Saji Deutsch RN Amended: Links added.
--- NOTE | 2019-02-01 06:56 | NUR ---
Patient in room [facility] 354. I have received report from DAVID Galloway and had the opportunity to ask questions and assume patient care.
[2019-02-01 07:00] VITALS: BP 114/73
[2019-02-01] MEDS: apixaban 5mg tablet PO SCH ×2 (08:04→20:16)
[2019-02-01] MEDS: lactobacillus rhamnosus 10,000 MMU CELLS/CAPSULE PO SCH ×2 (08:04→20:16)
[2019-02-01] MEDS: amox tr/potassium clavulanate 875/125mg TAB PO SCH ×2 (08:04→16:34)
[2019-02-01] MEDS: LIDOcaine 5% patch TP SCH (08:04)
[2019-02-01] MEDS: metoprolol tartrate 50mg tablet PO SCH ×2 (08:04→20:16)
[2019-02-01] MEDS: clopidogrel 75mg tablet PO SCH (08:04)
[2019-02-01] MEDS: cloNIDine 0.1 mg tablet PO SCH (08:04)
[2019-02-01 11:00] VITALS: BP 95/61
--- NOTE | 2019-02-01 14:40 | NUR ---
Reassessment: Pt s/p angiogram of left lower extremity stent placement. Pt continues on regular diet with fluctuations in PO intake previously 25-50% however documented at 75/100/75% intake at breakfast this morning. Pt seen at bedside with SO present. Pt endorses a good appetite and states her current PO intake is similar to that of how she eats at home. Pt denies any food allergies or difficulty chewing/swallowing. Pt states she often fluctuates between constipation and diarrhea and reports a small BM today. Pt given verbal nutrition therapy education for constipation and diarrhea. Pt given written and verbal protein education for wound healing. Pt agreeable to cottage cheese with fruit at lunch and dinner, d/w dietary. All of patient's questions were answered at this time. RD contact information provided. Will remain available. Recommendations: 1) Continue regular diet 2) Cottage cheese with peaches/pears or strawberries/blueberries BIDLD 3) Monitor need for additional bowel care 4) Wt per rx Addendum: 02/01/19 at [address] Amended: Links added.
--- NOTE | 2019-02-01 18:43 | NUR ---
Problems reprioritized. Patient report given, questions answered & plan of care reviewed with Rosmery Sauer RN.
--- NOTE | 2019-02-01 18:45 | NUR ---
Patient in room [facility] 354. I have received report from DAVID Fox and had the opportunity to ask questions and assume patient care. Addendum: 02/01/19 at 1845 by Karen Marcano RN Amended: Links added.
[2019-02-01] MEDS: HYDROcodone/acetaminophen 10/325mg tab PO PRN (20:17)
[2019-02-01] MEDS: amLODIPine 5mg tablet PO SCH (22:53)
[2019-02-02 05:36] LABS: BASOPHILS # (AUTO) 0.1 X10'3 (0-0.2); BASOPHILS % (AUTO) 0.9 % (0-1); EOSINOPHILS # (AUTO) 0.2 X10'3 (0-0.9); EOSINOPHILS % (AUTO) 2.3 % (0-6); HEMATOCRIT 23.8 % (35.0-45.0); HEMOGLOBIN 8.4 g/dl (12.0-16.0); LYMPHOCYTES # (AUTO) 1.5 X10'3 (1.1-4.8); LYMPHOCYTES % (AUTO) 15.9 % (21-51); MEAN CORPUSCULAR HEMOGLOBIN 33.9 PG (27.0-31.0); MEAN CORPUSCULAR HGB CONC 35.4 g/dL (33.0-36.5); MEAN CORPUSCULAR VOLUME 95.8 FL (78-98); MEAN PLATELET VOLUME 6.9 FL (7.4-10.4); MONOCYTES # (AUTO) 1.1 X10'3 (0-0.9); MONOCYTES % (AUTO) 11.8 % (2-12); NEUTROPHILS # (AUTO) 6.6 X10'3 (1.8-7.7); NEUTROPHILS % (AUTO) 69.1 % (42-75); PLATELET COUNT 416 X10'3 (140-440); RED BLOOD COUNT 2.48 X10'6 (4.20-5.60); RED CELL DISTRIBUTION WIDTH 12.8 % (11.5-14.5); WHITE BLOOD COUNT 9.6 X10'3 (4.5-11.0)
[2019-02-02 05:49] LABS: ALBUMIN 2.3 G/DL (3.4-5.0); ANION GAP 10 (8-16); BLOOD UREA NITROGEN 9 MG/DL (7-18); BUN/CREATININE RATIO 14.8 (6.6-38.0); CALCIUM 9.3 MG/DL (8.5-10.1); CHLORIDE 97 MMOL/L (99-107); CREATININE 0.61 MG/DL (0.40-0.90); GLUCOSE 129 MG/DL (70-104); SODIUM 130 MMOL/L (135-145); TOTAL CARBON DIOXIDE 22.7 MMOL/L (24-32); eGFR > 90 ML/MIN
--- NOTE | 2019-02-02 06:31 | NUR ---
Patient in room [facility] 354. I have received report from Rosmery Sauer RN and had the opportunity to ask questions and assume patient care.
--- NOTE | 2019-02-02 06:38 | NUR ---
Problems reprioritized. Patient report given, questions answered & plan of care reviewed with DAVID Fox.
[2019-02-02] MEDS: amox tr/potassium clavulanate 875/125mg TAB PO SCH ×2 (07:53→17:49)
[2019-02-02] MEDS: apixaban 5mg tablet PO SCH (07:53)
[2019-02-02] MEDS: lactobacillus rhamnosus 10,000 MMU CELLS/CAPSULE PO SCH (07:53)
[2019-02-02] MEDS: clopidogrel 75mg tablet PO SCH (07:53)
[2019-02-02] MEDS: LIDOcaine 5% patch TP SCH (07:59)
[2019-02-02 08:00] VITALS: BP 103/73
[2019-02-02] MEDS ORDERED: metoprolol tartrate 25mg tablet PO SCH (08:00)
[2019-02-02 11:00] VITALS: BP 97/66
[2019-02-02] MEDS ORDERED: AMOX-580 PO (11:59)
[2019-02-02] MEDS ORDERED: HYDR-4353 PO (11:59)
[2019-02-02] MEDS ORDERED: APIX5TAB3 PO (11:59)
[2019-02-02] MEDS ORDERED: CLOP75TA35 PO (11:59)
[2019-02-02 19:00] VITALS: BP 119/80
--- NOTE | 2019-02-02 19:00 | NUR ---
Problems reprioritized. Patient report given, questions answered & plan of care reviewed with DAVID Reinoso.
--- NOTE | 2019-02-02 19:44 | NUR ---
Received report from kay HERNANDEZ, went over pt's D/C paperwork, D/C'd IV, Provena and Tele, educated pt for S&S to look out for with wounds and that Dr. Yeager would like to see patient in his office Monday 02/19, pt was Wheelchaired out of hospital by aide, at bedside
== END 2019-02-02 19:45 | disposition home health service (06) | DRG 271 ==
LOC: ER 16:57 → ORTHO 4S 19:35 → CMPBEDREQ 21:31 → PACU 01-27 20:00 → ICU 2S 01-28 02:30 → SUR 3N 01-28 16:59
PROVIDERS: ADMIT Internal Medicine; ATTEND Family Medicine
PROC: 047D3DZ Dilation of Left Common Iliac Artery with Intraluminal Device, Percutaneous Approach (ICD-10-PCS; 2019-01-24)
PROC: 047C3DZ Dilation of Right Common Iliac Artery with Intraluminal Device, Percutaneous Approach (ICD-10-PCS; 2019-01-24)
PROC: 047H3ZZ Dilation of Right External Iliac Artery, Percutaneous Approach (ICD-10-PCS; 2019-01-24)
PROC: B41F1ZZ Fluoroscopy of Right Lower Extremity Arteries using Low Osmolar Contrast (ICD-10-PCS; 2019-01-24)
PROC: B41G1ZZ Fluoroscopy of Left Lower Extremity Arteries using Low Osmolar Contrast (ICD-10-PCS; 2019-01-24)
PROC: 04CL3ZZ Extirpation of Matter from Left Femoral Artery, Percutaneous Approach (ICD-10-PCS; principal; 2019-01-26)
PROC: 04CN3ZZ Extirpation of Matter from Left Popliteal Artery, Percutaneous Approach (ICD-10-PCS; 2019-01-26)
PROC: 047L3EZ Dilation of Left Femoral Artery with Two Intraluminal Devices, Percutaneous Approach (ICD-10-PCS; 2019-01-26)
PROC: B41G1ZZ Fluoroscopy of Left Lower Extremity Arteries using Low Osmolar Contrast (ICD-10-PCS; 2019-01-26)
PROC: B41F1ZZ Fluoroscopy of Right Lower Extremity Arteries using Low Osmolar Contrast (ICD-10-PCS; 2019-01-26)
PROC: 041L0JN Bypass Left Femoral Artery to Posterior Tibial Artery with Synthetic Substitute, Open Approach (ICD-10-PCS; 2019-01-27)
PROC: 04CL0ZZ Extirpation of Matter from Left Femoral Artery, Open Approach (ICD-10-PCS; 2019-01-27)
PROC: 041L09N Bypass Left Femoral Artery to Posterior Tibial Artery with Autologous Venous Tissue, Open Approach (ICD-10-PCS; 2019-01-27)
PROC: 06BQ0ZZ Excision of Left Saphenous Vein, Open Approach (ICD-10-PCS; 2019-01-27)
PROC: 4A02XM4 Measurement of Cardiac Total Activity, External Approach (ICD-10-PCS; 2019-01-27)
PROC: 3E033HZ Introduction of Radioactive Substance into Peripheral Vein, Percutaneous Approach (ICD-10-PCS; 2019-01-27)
PROC: 3E0234Z Introduction of Serum, Toxoid and Vaccine into Muscle, Percutaneous Approach (ICD-10-PCS; 2019-01-30)
PROC: CW1D1ZZ Planar Nuclear Medicine Imaging of Lower Extremity using Technetium 99m (Tc-99m) (ICD-10-PCS; 2019-01-30)
DX: I70.262 Atherosclerosis of native arteries of extremities with gangrene, left leg (principal); E87.1 Hypo-osmolality and hyponatremia; F17.200 Nicotine dependence, unspecified, uncomplicated; I10 Essential (primary) hypertension; E66.9 Obesity, unspecified; R01.1 Cardiac murmur, unspecified; Z90.710 Acquired absence of both cervix and uterus; Z23 Encounter for immunization; Z68.25 Body mass index [BMI] 25.0-25.9, adult; Z71.6 Tobacco abuse counseling
CPT/HCPCS: 37221; 37223; 37227; 93306; 96374; 99285; Z7506; 36415; 71045; 73590; 76000; 76937; 78315; 78452; 80048; 80053; 80061; 83735; 83880; 85025; 85347; 85610; 85651; 85730; 86140; 86885; 86900; 86901; 87070; 90732; 93005; 93017; 93922; 93926; 93970; 97116; 97161; 97530; 99152; 99153; A6219; A6454; A7000; A9500; A9503; C1725; C1757; C1769; C1781; C1874; C1876; C1887; C1894; G0378; J0280; J0690; J1100; J1170; J1200; J1644; J2001; J2250; J2405; J2543; J2704; J3010; J3490; J7030; J7120; Q9967

== ENCOUNTER 2019-02-15 11:21 | Inpatient (IN) | payer BC ==
[~2019-02-15] VITALS: Ht 162.6 cm; Wt 62.3 kg
[~2019-02-15 11:21] MED LIST: AMLO10TA PO; AMOX-580 PO; APIX5TAB3 PO; CLOP75TA35 PO; HYDR-4353 PO; METO50TA17 PO
[2019-02-15] MEDS ORDERED: normal saline 1000ML IV soln IV ONE (12:20)
[2019-02-15] MEDS ORDERED: vancomycin/NS 1 GM ADD-VANTAGE 250 ML IV ONE (12:20)
[2019-02-15] MEDS ORDERED: piperacillin/tazo 3.375gm/50ml 50 ML IV ONE (12:20)
[2019-02-15] MEDS ORDERED: morphine 2 MG/ML inj. syringe IV PRN (12:55)
[2019-02-15] MEDS ORDERED: acetaminophen 325mg tablet PO PRN (12:55)
[2019-02-15] MEDS ORDERED: magnesium Cl slow-release 64mg tablet PO PRN (12:55)
[2019-02-15] MEDS ORDERED: potassium Cl 40MEQ/NS 500ml 500 ML IV PRN ×2 (12:55)
[2019-02-15] MEDS ORDERED: mag hydrox/Alum hydrox/simeth 30ml oral suspension PO PRN (12:55)
[2019-02-15] MEDS ORDERED: magnesium 4gm in 100ml NS 100 ML IV PRN (12:55)
[2019-02-15] MEDS ORDERED: magnesium 2GM in 50ml NS 50 ML IV PRN (12:55)
[2019-02-15] MEDS ORDERED: potassium Cl 20 mEq SR tablet PO PRN ×2 (12:55)
[2019-02-15] MEDS ORDERED: ondansetron/PF 4mg/2ml inj IV PRN (12:55)
[2019-02-15 13:00] LABS: BASOPHILS # (AUTO) 0.1 X10'3 (0-0.2); BASOPHILS % (AUTO) 0.8 % (0-1); EOSINOPHILS # (AUTO) 0.5 X10'3 (0-0.9); EOSINOPHILS % (AUTO) 5.5 % (0-6); HEMATOCRIT 30.6 % (35.0-45.0); HEMOGLOBIN 10.5 g/dl (12.0-16.0); LYMPHOCYTES # (AUTO) 1.4 X10'3 (1.1-4.8); LYMPHOCYTES % (AUTO) 14.9 % (21-51); MEAN CORPUSCULAR HEMOGLOBIN 32.6 PG (27.0-31.0); MEAN CORPUSCULAR HGB CONC 34.4 g/dL (33.0-36.5); MEAN CORPUSCULAR VOLUME 94.9 FL (78-98); MEAN PLATELET VOLUME 6.6 FL (7.4-10.4); MONOCYTES # (AUTO) 0.9 X10'3 (0-0.9); MONOCYTES % (AUTO) 9.7 % (2-12); NEUTROPHILS # (AUTO) 6.7 X10'3 (1.8-7.7); NEUTROPHILS % (AUTO) 69.1 % (42-75); PLATELET COUNT 468 X10'3 (140-440); RED BLOOD COUNT 3.22 X10'6 (4.20-5.60); RED CELL DISTRIBUTION WIDTH 13.5 % (11.5-14.5); WHITE BLOOD COUNT 9.6 X10'3 (4.5-11.0)
[2019-02-15] MEDS ORDERED: CLOP75TA15 PO (13:01)
[2019-02-15] MEDS ORDERED: APIX5TAB3 PO (13:01)
[2019-02-15 13:14] LABS: ALANINE AMINOTRANSFERASE 28 U/L (12-78); ALBUMIN 2.9 G/DL (3.4-5.0); ALBUMIN/GLOBULIN RATIO 0.6 (1.1-1.5); ALKALINE PHOSPHATASE 112 IU/L (46-116); ANION GAP 8 (8-16); ASPARTATE AMINO TRANSFERASE 21 U/L (10-37); BILIRUBIN,TOTAL 0.2 MG/DL (0.1-1.0); BLOOD UREA NITROGEN 17 MG/DL (7-18); BUN/CREATININE RATIO 21.5 (6.6-38.0); CALCIUM 9.5 MG/DL (8.5-10.1); CHLORIDE 98 MMOL/L (99-107); CREATININE 0.79 MG/DL (0.40-0.90); GLUCOSE 125 MG/DL (70-104); POTASSIUM 4.1 MMOL/L (3.5-5.1); SODIUM 132 MMOL/L (135-145); TOTAL CARBON DIOXIDE 25.9 MMOL/L (24-32); TOTAL PROTEIN 8.1 G/DL (6.4-8.2); eGFR 74 ML/MIN
[2019-02-15 13:21] LABS: PARTIAL THROMBOPLASTIN TIME 32 SECONDS (22-32)
[2019-02-15] MEDS ORDERED: iohexol 350MG/ML 100ml bottle IV ONE (13:44)
[2019-02-15] MEDS: normal saline 1000ml 1,000 ML IV SCH ×2 (13:56→16:39)
[2019-02-15] MEDS ORDERED: iohexol 350 MG/ML 50ML vial IV ONE (14:24)
[2019-02-15] MEDS: piperacillin/tazo 4.5gm/100ml 100 ML IV SCH (16:00)
[2019-02-15 16:30] VITALS: BP 138/78
[2019-02-15] MEDS ORDERED: sevoflurane 250ml liquid IH ONE (17:53)
--- NOTE | 2019-02-15 18:01 | NUR ---
Dr Yeager aware patient on Elaquis no new orders.
--- NOTE | 2019-02-15 18:40 | NUR ---
Patient in room [facility]. I have received report from DAVID Correa and had the opportunity to ask questions and assume patient care with DAVID Shaffer. Addendum: 02/16/19 at 0437 by Jabari Cantrell RN Amended: Links added.
--- NOTE | 2019-02-15 18:40 | NUR ---
Patient in room [facility] 357. I have received report from Madeline HERNANDEZ and had the opportunity to ask questions and assume patient care.
--- NOTE | 2019-02-15 19:00 | NUR ---
Problems reprioritized. Patient report given, questions answered & plan of care reviewed with Ruth HERNANDEZ and Edmund HERNANDEZ.
[2019-02-15 19:33] VITALS: BP 115/72
[2019-02-15] MEDS ORDERED: apixaban 5mg tablet PO SCH (20:00)
[2019-02-15] MEDS: amLODIPine 5mg tablet PO SCH (21:19)
[2019-02-15] MEDS: HYDROcodone/acetaminophen 5mg/325mg tablet PO PRN (21:21)
[2019-02-15] MEDS: famotidine 20mg tablet PO SCH (21:21)
[2019-02-15] MEDS: metoprolol tartrate 50mg tablet PO SCH (21:34)
[2019-02-16] VITALS: BP 121/71
[2019-02-16] MEDS: piperacillin/tazo 4.5gm/100ml 100 ML IV SCH ×4 (00:23→23:59)
[2019-02-16] MEDS: vancomycin/NS 1 GM ADD-VANTAGE 250 ML IV SCH ×2 (01:24→13:00)
[2019-02-16 04:26] LABS: BASOPHILS # (AUTO) 0.1 X10'3 (0-0.2); BASOPHILS % (AUTO) 0.9 % (0-1); EOSINOPHILS # (AUTO) 0.9 X10'3 (0-0.9); EOSINOPHILS % (AUTO) 11.3 % (0-6); HEMATOCRIT 23.7 % (35.0-45.0); HEMOGLOBIN 8.3 g/dl (12.0-16.0); LYMPHOCYTES # (AUTO) 1.2 X10'3 (1.1-4.8); LYMPHOCYTES % (AUTO) 15.1 % (21-51); MEAN CORPUSCULAR HEMOGLOBIN 33.2 PG (27.0-31.0); MEAN CORPUSCULAR HGB CONC 35.1 g/dL (33.0-36.5); MEAN CORPUSCULAR VOLUME 94.5 FL (78-98); MEAN PLATELET VOLUME 6.9 FL (7.4-10.4); MONOCYTES # (AUTO) 0.7 X10'3 (0-0.9); MONOCYTES % (AUTO) 9.3 % (2-12); NEUTROPHILS % (AUTO) 63.4 % (42-75); PLATELET COUNT 344 X10'3 (140-440); RED BLOOD COUNT 2.51 X10'6 (4.20-5.60); RED CELL DISTRIBUTION WIDTH 13.5 % (11.5-14.5); WHITE BLOOD COUNT 7.9 X10'3 (4.5-11.0)
[2019-02-16 04:33] LABS: ALBUMIN 2.2 G/DL (3.4-5.0); ANION GAP 7 (8-16); BLOOD UREA NITROGEN 6 MG/DL (7-18); CALCIUM 8.9 MG/DL (8.5-10.1); CHLORIDE 104 MMOL/L (99-107); GLUCOSE 118 MG/DL (70-104); MAGNESIUM 1.7 MG/DL (1.5-2.4); POTASSIUM 3.7 MMOL/L (3.5-5.1); SODIUM 136 MMOL/L (135-145); TOTAL CARBON DIOXIDE 24.6 MMOL/L (24-32); eGFR > 90 ML/MIN
--- NOTE | 2019-02-16 06:30 | NUR ---
Patient in room [facility] 357. I have received report from ROSALINO HERNANDEZ and had the opportunity to ask questions and assume patient care.
--- NOTE | 2019-02-16 06:30 | NUR ---
Problems reprioritized. Patient report given, questions answered & plan of care reviewed with Lan HERNANDEZ.
[2019-02-16 07:00] VITALS: BP 135/72
[2019-02-16] MEDS: K and/or MAG REPLACEMENT MC SCH (08:00)
[2019-02-16] MEDS: clopidogrel 75mg tablet PO SCH (08:45)
[2019-02-16] MEDS: metoprolol tartrate 50mg tablet PO SCH ×2 (08:45→20:03)
[2019-02-16 11:00] VITALS: BP 113/69
[2019-02-16] MEDS ORDERED: ceFAZolin 1000mg inj ONE (14:26)
[2019-02-16] MEDS ORDERED: heparin 10,000 units/1 ML INJ ONE (14:26)
--- NOTE | 2019-02-16 17:59 | NUR ---
Problems reprioritized. Patient report given, questions answered & plan of care reviewed with GALILEO HERNANDEZ.
--- NOTE | 2019-02-16 18:30 | NUR ---
Patient in room [facility] 357. I have received report from DAVID BRYANT and had the opportunity to ask questions and assume patient care WITH DAVID GURROLA Addendum: 02/16/19 at 1920 by Jabari Cantrell RN Amended: Links added.
--- NOTE | 2019-02-16 18:43 | NUR ---
Patient in room [facility] 357. I have received report from Lan HERNANDEZ and had the opportunity to ask questions and assume patient care.
[2019-02-16 19:00] VITALS: BP_SYST 111; BP_SYST 146; BP_DIAS 53; BP_DIAS 75
[2019-02-16] MEDS: famotidine 20mg tablet PO SCH (19:59)
[2019-02-16] MEDS: amLODIPine 5mg tablet PO SCH (20:02)
[2019-02-16] MEDS: HYDROcodone/acetaminophen 5mg/325mg tablet PO PRN (20:04)
--- NOTE | 2019-02-16 21:37 | NUR ---
SAT 97% WHEN AMB ON 4 L N/C, WENT TO 89% ON 2/5 L, ENC C&DB, IS. SAT NOW 93 TO 94% ON 3L N/C. Addendum: 02/16/19 at 213 by Jabari Cantrell RN Amended: Links added. Addendum: 02/16/19 at 2142 by Jabari Cantrell RN DISSREGARD ABOVE NOTE. WRONG PATIENT.
[2019-02-17] VITALS (17 sets, daily range): BP systolic 111–154; BP diastolic 46–84
[2019-02-17] MEDS ORDERED: diphenhydrAMINE 25mg capsule PO PRN (00:30)
[2019-02-17] MEDS ORDERED: VANCOMYCIN LEVEL IV ONE (00:30)
[2019-02-17] MEDS ORDERED: diphenhydrAMINE 50 mg/ml inj IV PRN (00:30)
[2019-02-17] MEDS: vancomycin/NS 1 GM ADD-VANTAGE 250 ML IV SCH (01:24)
[2019-02-17 01:33] LABS: BASOPHILS % (AUTO) 0.2 % (0-1); EOSINOPHILS # (AUTO) 1.1 X10'3 (0-0.9); EOSINOPHILS % (AUTO) 13.8 % (0-6); HEMATOCRIT 24.4 % (35.0-45.0); HEMOGLOBIN 8.5 g/dl (12.0-16.0); LYMPHOCYTES # (AUTO) 1.6 X10'3 (1.1-4.8); LYMPHOCYTES % (AUTO) 20.3 % (21-51); MEAN CORPUSCULAR HGB CONC 34.8 g/dL (33.0-36.5); MEAN CORPUSCULAR VOLUME 94.8 FL (78-98); MEAN PLATELET VOLUME 6.8 FL (7.4-10.4); MONOCYTES # (AUTO) 0.9 X10'3 (0-0.9); NEUTROPHILS # (AUTO) 4.4 X10'3 (1.8-7.7); NEUTROPHILS % (AUTO) 54.7 % (42-75); PLATELET COUNT 344 X10'3 (140-440); RED BLOOD COUNT 2.58 X10'6 (4.20-5.60); RED CELL DISTRIBUTION WIDTH 13.3 % (11.5-14.5); WHITE BLOOD COUNT 8.1 X10'3 (4.5-11.0)
[2019-02-17 01:43] LABS: ANION GAP 6 (8-16); BLOOD UREA NITROGEN 7 MG/DL (7-18); BUN/CREATININE RATIO 9.7 (6.6-38.0); CALCIUM 9.3 MG/DL (8.5-10.1); CHLORIDE 103 MMOL/L (99-107); CREATININE 0.72 MG/DL (0.40-0.90); GLUCOSE 116 MG/DL (70-104); POTASSIUM 3.6 MMOL/L (3.5-5.1); SODIUM 136 MMOL/L (135-145); TOTAL CARBON DIOXIDE 27.4 MMOL/L (24-32); eGFR 82 ML/MIN
[2019-02-17 01:44] LABS: ALBUMIN 2.4 G/DL (3.4-5.0); MAGNESIUM 1.7 MG/DL (1.5-2.4); VANCOMYCIN,TROUGH 12.2 UG/ML (6.0-14.0)
[2019-02-17] MEDS: normal saline 1000ml 1,000 ML IV SCH (03:30)
--- NOTE | 2019-02-17 03:34 | NUR ---
Agree with nursing assessment done by DAVID Shaffer. Addendum: 02/17/19 at 0334 by Jabari Cantrell RN Amended: Links added.
--- NOTE | 2019-02-17 04:45 | NUR ---
Pt is upset about being npo. Bel[place]ian speaking Nurse from [facility] came over and spoke with pt. discussed pl of care, tests and why NPO. Pt states to her, he felt that all anyone was doing was giving him pain medications. Pt is painfull, but does not want any more medication. Pt verbally voiced understanding of tests and why he is npo. Pt is calm after speaking to nurse. Addendum: 02/17/19 at 0539 by Jabari Cantrell RN Amended: Links added.
--- NOTE | 2019-02-17 06:20 | NUR ---
Patient in room [facility] 357. I have received report from Edmund RN and DAVID Miranda and had the opportunity to ask questions and assume patient care.
--- NOTE | 2019-02-17 06:29 | NUR ---
Problems reprioritized. Patient report given, questions answered & plan of care reviewed with Candace HERNANDEZ.
[2019-02-17] MEDS: piperacillin/tazo 4.5gm/100ml 100 ML IV SCH ×3 (07:44→23:01)
[2019-02-17] MEDS: metoprolol tartrate 50mg tablet PO SCH ×2 (07:44→20:27)
[2019-02-17] MEDS: K and/or MAG REPLACEMENT MC SCH (07:44)
[2019-02-17] MEDS: clopidogrel 75mg tablet PO SCH (07:53)
[2019-02-17] MEDS: vancomycin inj 1,250 MG in NS 250ml IV soln IV SCH (13:59)
--- NOTE | 2019-02-17 16:06 | NUR ---
Dr Yeager would like us to get the sensitivity on wound culture and get case management working on approval for home wound vac. Wound vac papers signed by Dr Yeager.
[2019-02-17] MEDS ORDERED: midazolam 2 mg/2 ml injection ONE (18:00)
--- NOTE | 2019-02-17 18:15 | NUR ---
Patient in room [facility] 357. I have received report from Hayley HERNANDEZ and had the opportunity to ask questions and assume patient care. Pt in OR, awaiting OR report and pt arrival. will continue to monitor.
--- NOTE | 2019-02-17 18:15 | NUR ---
Problems reprioritized. Patient report given, questions answered & plan of care reviewed with DAVID Alcantara.
[2019-02-17] MEDS ORDERED: ondansetron/PF 4mg/2ml inj IV PRN (18:25)
[2019-02-17] MEDS ORDERED: hydrALAZINE 20mg/ml inj. IV PRN (18:25)
[2019-02-17] MEDS ORDERED: fentaNYL/PF 50MCG/1 ML 2ML syringe IV PRN ×2 (18:25)
[2019-02-17] MEDS ORDERED: ringers solution, lacted 1,000 ML IV SCH (18:25)
[2019-02-17] MEDS ORDERED: labetalol 20mg/4ml (5mg/ml) syringe IV PRN (18:25)
[2019-02-17] MEDS ORDERED: morphine 4 MG/ML inj SYRINge IV PRN ×2 (18:25)
[2019-02-17] MEDS ORDERED: fentaNYL/PF 50MCG/1 ML 2ML syringe ONE (18:37)
--- NOTE | 2019-02-17 19:00 | NUR ---
Received from OR via SURGICAL BED , accompanied by Anesthesiologist ELVIRA and report given by Anesthesiolgist. PATIENT WITH 20G PIV IN RIGHT UE RUNNING LR AT 100. DENIES PAIN. DENIES PAIN. + CAP REFILL TO SMALL 5TH TOE. WOUND VAC PLACED TO LEFT INGUINAL AREA. PULLING AT 125 MM HG. ONE PIECE BLACK SPONGUE. NO AUDIBLE LEAKS DETECTED. 10L MASK ON WITH 100% SATURATIONS. LEFT TOES STILL BLACK IN COLORATION. Addendum: 02/17/19 at 1910 by Terrance Gill RN, RN Amended: Links added.
--- NOTE | 2019-02-17 19:28 | NUR ---
MD FELIX DECLDAPHNIE NEED FOR THIS Addendum: 02/17/19 at 1928 by Terrance Gill RN RN Amended: Links added.
--- NOTE | 2019-02-17 19:40 | NUR ---
ALL CRITERIA FOR TRANSFER TO THE FLOOR HAS BEEN ACHIEVED. VSS. BED LOW, CALL LIGHT AND VS. SET IN PLACE. DAVID ETIENNE WAS PRESENT TO ACCEPT CARE. PATIENT RESTING COMFORTABLY IN BED. BELONGINGS SENT WITH PATIENT. DRESSINGS CDI. WOUND VAC INTACT AND NO LEAKS. Addendum: 02/17/19 at 1946 by Terrance Gill RN, RN Amended: Links added.
--- NOTE | 2019-02-17 19:44 | NUR ---
pt arrived. no signs of distress. IV intact, WV intact. call light and post op vitals hooked up. will continue to monitor.
[2019-02-17] MEDS: apixaban 5mg tablet PO SCH (20:26)
[2019-02-17] MEDS: lactobacillus rhamnosus 10,000 MMU CELLS/CAPSULE PO SCH (20:26)
[2019-02-17] MEDS: amLODIPine 5mg tablet PO SCH (20:27)
[2019-02-17] MEDS: famotidine 20mg tablet PO SCH (20:27)
[2019-02-18] VITALS: BP 119/65
[2019-02-18 00:15] VITALS: BP 116/68
[2019-02-18] MEDS: vancomycin inj 1,250 MG in NS 250ml IV soln IV SCH ×2 (02:22→15:01)
[2019-02-18 06:22] LABS: BASOPHILS # (AUTO) 0.1 X10'3 (0-0.2); EOSINOPHILS % (AUTO) 11.4 % (0-6); HEMATOCRIT 26.8 % (35.0-45.0); HEMOGLOBIN 9.4 g/dl (12.0-16.0); LYMPHOCYTES # (AUTO) 1.1 X10'3 (1.1-4.8); LYMPHOCYTES % (AUTO) 13.2 % (21-51); MEAN CORPUSCULAR HEMOGLOBIN 32.9 PG (27.0-31.0); MEAN CORPUSCULAR VOLUME 93.9 FL (78-98); MEAN PLATELET VOLUME 6.9 FL (7.4-10.4); MONOCYTES # (AUTO) 0.8 X10'3 (0-0.9); MONOCYTES % (AUTO) 9.4 % (2-12); NEUTROPHILS # (AUTO) 5.4 X10'3 (1.8-7.7); PLATELET COUNT 338 X10'3 (140-440); RED BLOOD COUNT 2.85 X10'6 (4.20-5.60); RED CELL DISTRIBUTION WIDTH 13.3 % (11.5-14.5); WHITE BLOOD COUNT 8.3 X10'3 (4.5-11.0)
--- NOTE | 2019-02-18 06:29 | NUR ---
Problems reprioritized. Patient report given, questions answered & plan of care reviewed with Jeovany RN.
[2019-02-18 06:43] LABS: ALBUMIN 2.4 G/DL (3.4-5.0); ANION GAP 12 (8-16); BLOOD UREA NITROGEN 6 MG/DL (7-18); BUN/CREATININE RATIO 8.1 (6.6-38.0); CALCIUM 8.7 MG/DL (8.5-10.1); CHLORIDE 103 MMOL/L (99-107); CREATININE 0.74 MG/DL (0.40-0.90); GLUCOSE 118 MG/DL (70-104); MAGNESIUM 1.6 MG/DL (1.5-2.4); POTASSIUM 3.3 MMOL/L (3.5-5.1); SODIUM 137 MMOL/L (135-145); TOTAL CARBON DIOXIDE 22.3 MMOL/L (24-32); eGFR 79 ML/MIN
--- NOTE | 2019-02-18 06:57 | NUR ---
Patient in room [facility] 357. I have received report from Maricruz HERNANDEZ and had the opportunity to ask questions and assume patient care.
[2019-02-18 07:30] VITALS: BP 165/77
[2019-02-18 07:32] VITALS: BP 130/60
[2019-02-18] MEDS: K and/or MAG REPLACEMENT MC SCH (08:00)
[2019-02-18] MEDS: piperacillin/tazo 4.5gm/100ml 100 ML IV SCH ×2 (08:11→17:12)
[2019-02-18] MEDS: clopidogrel 75mg tablet PO SCH (08:12)
[2019-02-18] MEDS: lactobacillus rhamnosus 10,000 MMU CELLS/CAPSULE PO SCH ×2 (08:12→20:21)
[2019-02-18] MEDS: apixaban 5mg tablet PO SCH ×2 (08:12→20:22)
[2019-02-18] MEDS: metoprolol tartrate 50mg tablet PO SCH ×2 (08:13→20:22)
[2019-02-18 11:00] VITALS: BP 102/57
[2019-02-18 18:00] VITALS: BP 129/80
--- NOTE | 2019-02-18 18:30 | NUR ---
Problems reprioritized. Patient report given, questions answered & plan of care reviewed with Maricruz HERNANDEZ.
--- NOTE | 2019-02-18 18:30 | NUR ---
Patient in room [facility] 357. I have received report from Jeovany HERNANDEZ and had the opportunity to ask questions and assume patient care..
[2019-02-18] MEDS: amLODIPine 5mg tablet PO SCH (20:22)
[2019-02-18] MEDS: famotidine 20mg tablet PO SCH (20:22)
[2019-02-18] MEDS ORDERED: magnesium Cl slow-release 64mg tablet PO PRN (21:05)
[2019-02-18] MEDS ORDERED: potassium Cl 40MEQ/NS 500ml 500 ML IV PRN ×2 (21:05)
[2019-02-18] MEDS ORDERED: magnesium 4gm in 100ml NS 100 ML IV PRN (21:05)
[2019-02-18] MEDS ORDERED: magnesium 2GM in 50ml NS 50 ML IV PRN (21:05)
[2019-02-18] MEDS ORDERED: potassium Cl 20 mEq SR tablet PO PRN ×2 (21:05)
[2019-02-18] MEDS: HYDROcodone/acetaminophen 5mg/325mg tablet PO PRN (21:16)
[2019-02-19] VITALS: BP 132/73
[2019-02-19] MEDS ORDERED: VANCOMYCIN LEVEL IV ONE (00:30)
[2019-02-19 05:43] LABS: BASOPHILS # (AUTO) 0.1 X10'3 (0-0.2); BASOPHILS % (AUTO) 1.4 % (0-1); EOSINOPHILS # (AUTO) 1.2 X10'3 (0-0.9); EOSINOPHILS % (AUTO) 14.8 % (0-6); HEMATOCRIT 25.3 % (35.0-45.0); HEMOGLOBIN 8.9 g/dl (12.0-16.0); LYMPHOCYTES # (AUTO) 1.3 X10'3 (1.1-4.8); MEAN CORPUSCULAR HEMOGLOBIN 32.8 PG (27.0-31.0); MEAN CORPUSCULAR VOLUME 93.7 FL (78-98); MEAN PLATELET VOLUME 6.7 FL (7.4-10.4); MONOCYTES # (AUTO) 0.9 X10'3 (0-0.9); MONOCYTES % (AUTO) 10.9 % (2-12); NEUTROPHILS # (AUTO) 4.4 X10'3 (1.8-7.7); NEUTROPHILS % (AUTO) 55.9 % (42-75); PLATELET COUNT 303 X10'3 (140-440); RED CELL DISTRIBUTION WIDTH 13.2 % (11.5-14.5); WHITE BLOOD COUNT 7.9 X10'3 (4.5-11.0)
[2019-02-19 05:49] LABS: ALBUMIN 2.3 G/DL (3.4-5.0); ANION GAP 12 (8-16); BLOOD UREA NITROGEN 9 MG/DL (7-18); BUN/CREATININE RATIO 8.3 (6.6-38.0); CALCIUM 8.9 MG/DL (8.5-10.1); CHLORIDE 106 MMOL/L (99-107); CREATININE 1.09 MG/DL (0.40-0.90); GLUCOSE 122 MG/DL (70-104); POTASSIUM 3.5 MMOL/L (3.5-5.1); SODIUM 140 MMOL/L (135-145); TOTAL CARBON DIOXIDE 21.6 MMOL/L (24-32); eGFR 51 ML/MIN
[2019-02-19 05:56] LABS: MAGNESIUM 1.7 MG/DL (1.5-2.4)
--- NOTE | 2019-02-19 06:10 | NUR ---
Problems reprioritized. Patient report given, questions answered & plan of care reviewed with EDEN RN.
--- NOTE | 2019-02-19 06:30 | NUR ---
Patient in room [facility] 357. I have received report from Maricruz HERNANDEZ and had the opportunity to ask questions and assume patient care.
[2019-02-19 07:00] VITALS: BP 127/75
[2019-02-19] MEDS: K and/or MAG REPLACEMENT MC SCH (08:00)
[2019-02-19] MEDS: apixaban 5mg tablet PO SCH ×2 (09:22→20:15)
[2019-02-19] MEDS: clopidogrel 75mg tablet PO SCH (09:23)
[2019-02-19] MEDS: lactobacillus rhamnosus 10,000 MMU CELLS/CAPSULE PO SCH ×2 (09:23→20:15)
[2019-02-19] MEDS: ciprofloxacin 250mg tablet PO SCH (09:23)
[2019-02-19] MEDS: linezolid 600mg tablet PO SCH ×2 (09:24→20:19)
[2019-02-19] MEDS: metoprolol tartrate 50mg tablet PO SCH ×2 (09:24→20:17)
[2019-02-19 11:00] VITALS: BP 113/79
--- NOTE | 2019-02-19 13:49 | NUR ---
Zyvox consult: Pt admit w/ recent fem-pop site infection; s/p groin I&D and vac placement. PO 75% avg regular diet. LBM 02/16. Pt started on zyvox today. Pt seen by RD for written/verbal high protein and zyvox eds w/ RD contact information provided. Pt declines additional proteins at this time; drinks premier proteins at home. Will continue to monitor. Rec: 1. continue regular diet 2. MVI for wounds 3. wt per rx Addendum: 02/19/19 at [address] Amended: Links added.
--- NOTE | 2019-02-19 18:30 | NUR ---
Problems reprioritized. Patient report given, questions answered & plan of care reviewed with Nilesh HERNANDEZ. Addendum: 02/19/19 at 1910 by Man Solares RN Incorrect name of NOC nurse report given to Keisha HERNANDEZ
[2019-02-19 19:30] VITALS: BP 123/73
[2019-02-19] MEDS: famotidine 20mg tablet PO SCH (20:19)
[2019-02-19] MEDS: amLODIPine 5mg tablet PO SCH (20:20)
[2019-02-20] VITALS: BP 119/72
[2019-02-20] MEDS: ciprofloxacin 250mg tablet PO SCH ×3 (00:06→22:03)
[2019-02-20] MEDS: HYDROcodone/acetaminophen 5mg/325mg tablet PO PRN ×2 (00:07→22:03)
[2019-02-20 05:07] LABS: BASOPHILS # (AUTO) 0.1 X10'3 (0-0.2); BASOPHILS % (AUTO) 0.8 % (0-1); EOSINOPHILS % (AUTO) 12.8 % (0-6); HEMATOCRIT 24.7 % (35.0-45.0); HEMOGLOBIN 8.6 g/dl (12.0-16.0); LYMPHOCYTES # (AUTO) 1.7 X10'3 (1.1-4.8); LYMPHOCYTES % (AUTO) 21.1 % (21-51); MEAN CORPUSCULAR HEMOGLOBIN 32.6 PG (27.0-31.0); MEAN CORPUSCULAR HGB CONC 34.9 g/dL (33.0-36.5); MEAN CORPUSCULAR VOLUME 93.4 FL (78-98); MEAN PLATELET VOLUME 6.7 FL (7.4-10.4); MONOCYTES # (AUTO) 0.8 X10'3 (0-0.9); MONOCYTES % (AUTO) 10.3 % (2-12); NEUTROPHILS # (AUTO) 4.4 X10'3 (1.8-7.7); PLATELET COUNT 274 X10'3 (140-440); RED BLOOD COUNT 2.65 X10'6 (4.20-5.60); RED CELL DISTRIBUTION WIDTH 13.4 % (11.5-14.5)
[2019-02-20 05:19] LABS: ALBUMIN 2.4 G/DL (3.4-5.0); ANION GAP 12 (8-16); BLOOD UREA NITROGEN 13 MG/DL (7-18); BUN/CREATININE RATIO 6.3 (6.6-38.0); CALCIUM 8.7 MG/DL (8.5-10.1); CHLORIDE 104 MMOL/L (99-107); CREATININE 2.05 MG/DL (0.40-0.90); GLUCOSE 102 MG/DL (70-104); MAGNESIUM 1.6 MG/DL (1.5-2.4); POTASSIUM 3.5 MMOL/L (3.5-5.1); SODIUM 137 MMOL/L (135-145); TOTAL CARBON DIOXIDE 21.5 MMOL/L (24-32); eGFR 24 ML/MIN
[2019-02-20 07:00] VITALS: BP 103/69
--- NOTE | 2019-02-20 07:00 | NUR ---
Patient in room [facility]. I have received report from Keisha and had the opportunity to ask questions and assume patient care. Addendum: 02/20/19 at 1041 by Lauren Leon RN Amended: Links added.
[2019-02-20] MEDS: metoprolol tartrate 50mg tablet PO SCH ×2 (08:00→20:22)
[2019-02-20] MEDS: lactobacillus rhamnosus 10,000 MMU CELLS/CAPSULE PO SCH ×2 (08:07→20:19)
[2019-02-20] MEDS: clopidogrel 75mg tablet PO SCH (08:07)
[2019-02-20] MEDS: linezolid 600mg tablet PO SCH ×2 (08:07→20:20)
[2019-02-20] MEDS: apixaban 5mg tablet PO SCH ×2 (08:07→20:21)
[2019-02-20] MEDS: K and/or MAG REPLACEMENT MC SCH (08:15)
[2019-02-20 11:13] VITALS: BP 114/69
[2019-02-20] MEDS: normal saline 1000ml 1,000 ML IV SCH (11:25)
--- NOTE | 2019-02-20 18:19 | NUR ---
Problems reprioritized. Patient report given, questions answered & plan of care reviewed with Emma. Addendum: 02/20/19 at 1820 by Lauren Leon RN Amended: Links added.
--- NOTE | 2019-02-20 18:20 | NUR ---
Patient in room [facility]. I have received report from DANIEL HERNANDEZ and had the opportunity to ask questions and assume patient care. Addendum: 02/20/19 at 1850 by Emma Shah RN Amended: Links added.
--- NOTE | 2019-02-20 18:26 | NUR ---
WOUND VAC EDUCATION PROVIDED BY WOUND CARE 1. Patient instructed to call the Wound Center or their Home Health Agency immediately if: * They notice a change in the color or amount of the fluid in the canister. * Their wound looks more red than usual or has a foul smell. * The skin around their wound looks reddened or irritated. * The dressing feels loose or appears to be loose. * They experience any increase or changes in their pain. * The alarm will not turn off. 2. Patient instructed that they should not be disconnected from suction for more than 2 hours at a time. * If they are not able to get the suction back on, they need to remove the dressing and take all of the foam out of the wound. * Then moisten sterile gauze with normal saline and place on/in the wound. * Change the dressing once a day until arrangements have been made to replace the wound vac dressing. 3. Patient instructed to turn the wound vac machine OFF and call 911 or go to the ED immediately if their canister fills rapidly with blood. 4. If any of these occur while in the hospital tell a nurse immediately. Addendum: 02/20/19 at 1826 by Janelle Anne RN Amended: Links added.
[2019-02-20 19:30] VITALS: BP 142/74
--- NOTE | 2019-02-20 20:00 | NUR ---
pt resting without changes.
[2019-02-20] MEDS: amLODIPine 5mg tablet PO SCH (20:20)
[2019-02-20] MEDS: famotidine 20mg tablet PO SCH (20:21)
--- NOTE | 2019-02-20 22:10 | NUR ---
TOOK PO ABX AND MEDICATED FOR LEFT GROIN PAIN WITH NORCO PO.
[2019-02-21] VITALS: BP 133/76
--- NOTE | 2019-02-21 | NUR ---
pt resting eyes closed without changes.
[2019-02-21] MEDS: normal saline 1000ml 1,000 ML IV SCH ×2 (01:31→16:41)
--- NOTE | 2019-02-21 02:00 | NUR ---
pt resting eyes closed without changes.
--- NOTE | 2019-02-21 04:00 | NUR ---
pt resting eyes closed without changes.
--- NOTE | 2019-02-21 06:24 | NUR ---
Problems reprioritized. Patient report given, questions answered & plan of care reviewed with Shannon Fernando. Addendum: 02/21/19 at 0624 by Emma Shah RN Amended: Links added.
[2019-02-21 07:25] VITALS: BP 139/81
[2019-02-21] MEDS: K and/or MAG REPLACEMENT MC SCH (08:00)
[2019-02-21] MEDS: metoprolol tartrate 50mg tablet PO SCH ×2 (08:49→21:16)
[2019-02-21] MEDS: lactobacillus rhamnosus 10,000 MMU CELLS/CAPSULE PO SCH ×2 (08:49→21:12)
[2019-02-21] MEDS: linezolid 600mg tablet PO SCH ×2 (08:49→21:15)
[2019-02-21 09:19] LABS: BASOPHILS # (AUTO) 0.1 X10'3 (0-0.2); BASOPHILS % (AUTO) 0.9 % (0-1); EOSINOPHILS # (AUTO) 0.9 X10'3 (0-0.9); EOSINOPHILS % (AUTO) 14.5 % (0-6); HEMATOCRIT 24.8 % (35.0-45.0); HEMOGLOBIN 8.6 g/dl (12.0-16.0); LYMPHOCYTES # (AUTO) 1.2 X10'3 (1.1-4.8); LYMPHOCYTES % (AUTO) 17.9 % (21-51); MEAN CORPUSCULAR HEMOGLOBIN 32.3 PG (27.0-31.0); MEAN CORPUSCULAR HGB CONC 34.6 g/dL (33.0-36.5); MEAN CORPUSCULAR VOLUME 93.3 FL (78-98); MEAN PLATELET VOLUME 6.5 FL (7.4-10.4); MONOCYTES # (AUTO) 0.6 X10'3 (0-0.9); MONOCYTES % (AUTO) 9.2 % (2-12); NEUTROPHILS # (AUTO) 3.8 X10'3 (1.8-7.7); NEUTROPHILS % (AUTO) 57.5 % (42-75); PLATELET COUNT 245 X10'3 (140-440); RED BLOOD COUNT 2.66 X10'6 (4.20-5.60); RED CELL DISTRIBUTION WIDTH 13.4 % (11.5-14.5); WHITE BLOOD COUNT 6.5 X10'3 (4.5-11.0)
[2019-02-21 09:32] LABS: ALANINE AMINOTRANSFERASE 14 U/L (12-78); ALBUMIN 2.4 G/DL (3.4-5.0); ALBUMIN/GLOBULIN RATIO 0.6 (1.1-1.5); ALKALINE PHOSPHATASE 79 IU/L (46-116); ANION GAP 10 (8-16); ASPARTATE AMINO TRANSFERASE 13 U/L (10-37); BILIRUBIN,TOTAL 0.2 MG/DL (0.1-1.0); BLOOD UREA NITROGEN 19 MG/DL (7-18); BUN/CREATININE RATIO 6.1 (6.6-38.0); CALCIUM 8.6 MG/DL (8.5-10.1); CHLORIDE 105 MMOL/L (99-107); CREATININE 3.13 MG/DL (0.40-0.90); GLUCOSE 170 MG/DL (70-104); SODIUM 137 MMOL/L (135-145); TOTAL PROTEIN 6.7 G/DL (6.4-8.2); eGFR 15 ML/MIN
[2019-02-21] MEDS: ciprofloxacin 250mg tablet PO SCH (11:03)
[2019-02-21 11:31] VITALS: BP 133/76
[2019-02-21 18:06] LABS: CLARITY,URINE CLEAR (Clear); COLOR,URINE STRAW (Yellow); GLUCOSE, URINE NEGATIVE (Neg); KETONES,URINE NEGATIVE (Neg); LEUKOCYTE ESTERASE ,URINE NEGATIVE (Neg); NITRITES, URINE NEGATIVE (Neg); OCCULT BLOOD,URINE NEGATIVE (Neg); PH,URINE 5.5 (4.8-8.0); PROTEIN,URINE NEGATIVE (Neg); UROBILINOGEN,URINE 0.2 E.U/dL (0.2-1.0)
[2019-02-21 18:10] LABS: UA COLLECTION TYPE CLN CATCH MIDSTREAM
--- NOTE | 2019-02-21 18:28 | NUR ---
Problems reprioritized. Patient report given, questions answered & plan of care reviewed with DAVID Concepcion.
--- NOTE | 2019-02-21 18:30 | NUR ---
Patient in room [facility]. I have received report from MARIA DEL CARMEN HERNANDEZ and had the opportunity to ask questions and assume patient care.
[2019-02-21 18:39] LABS: UA EOSINOPHILS NO EOS /HPF
[2019-02-21 20:00] VITALS: BP 158/60
[2019-02-21] MEDS: famotidine 20mg tablet PO SCH (21:14)
[2019-02-21] MEDS: HYDROcodone/acetaminophen 5mg/325mg tablet PO PRN (21:15)
[2019-02-21] MEDS: amLODIPine 5mg tablet PO SCH (21:16)
[2019-02-22] VITALS (18 sets, daily range): BP systolic 119–154; BP diastolic 60–87
[2019-02-22] MEDS: normal saline 1000ml 1,000 ML IV SCH ×2 (05:16→17:45)
[2019-02-22 05:54] LABS: BASOPHILS # (AUTO) 0.1 X10'3 (0-0.2); BASOPHILS % (AUTO) 0.8 % (0-1); EOSINOPHILS % (AUTO) 14.9 % (0-6); HEMATOCRIT 24.7 % (35.0-45.0); HEMOGLOBIN 8.5 g/dl (12.0-16.0); LYMPHOCYTES # (AUTO) 1.5 X10'3 (1.1-4.8); MEAN CORPUSCULAR HEMOGLOBIN 32.5 PG (27.0-31.0); MEAN CORPUSCULAR HGB CONC 34.4 g/dL (33.0-36.5); MEAN CORPUSCULAR VOLUME 94.4 FL (78-98); MEAN PLATELET VOLUME 6.7 FL (7.4-10.4); MONOCYTES # (AUTO) 0.7 X10'3 (0-0.9); MONOCYTES % (AUTO) 9.4 % (2-12); NEUTROPHILS # (AUTO) 3.8 X10'3 (1.8-7.7); NEUTROPHILS % (AUTO) 53.9 % (42-75); PLATELET COUNT 227 X10'3 (140-440); RED BLOOD COUNT 2.62 X10'6 (4.20-5.60); RED CELL DISTRIBUTION WIDTH 13.2 % (11.5-14.5)
[2019-02-22 06:10] LABS: ALANINE AMINOTRANSFERASE 14 U/L (12-78); ALBUMIN 2.4 G/DL (3.4-5.0); ALBUMIN/GLOBULIN RATIO 0.6 (1.1-1.5); ALKALINE PHOSPHATASE 87 IU/L (46-116); ANION GAP 11 (8-16); ASPARTATE AMINO TRANSFERASE 15 U/L (10-37); BILIRUBIN,TOTAL 0.2 MG/DL (0.1-1.0); BLOOD UREA NITROGEN 21 MG/DL (7-18); CALCIUM 8.6 MG/DL (8.5-10.1); CHLORIDE 107 MMOL/L (99-107); CREATININE 2.98 MG/DL (0.40-0.90); GLUCOSE 109 MG/DL (70-104); MAGNESIUM 1.6 MG/DL (1.5-2.4); POTASSIUM 3.9 MMOL/L (3.5-5.1); SODIUM 138 MMOL/L (135-145); TOTAL CARBON DIOXIDE 20.3 MMOL/L (24-32); TOTAL PROTEIN 6.7 G/DL (6.4-8.2); eGFR 16 ML/MIN
--- NOTE | 2019-02-22 06:21 | NUR ---
Problems reprioritized. Patient report given, questions answered & plan of care reviewed with MARIA DEL CARMEN HERNANDEZ.
[2019-02-22 06:29] LABS: PARTIAL THROMBOPLASTIN TIME 32 SECONDS (22-32)
[2019-02-22] MEDS: lactobacillus rhamnosus 10,000 MMU CELLS/CAPSULE PO SCH ×2 (08:00→20:21)
[2019-02-22] MEDS: K and/or MAG REPLACEMENT MC SCH (08:00)
[2019-02-22] MEDS: metoprolol tartrate 50mg tablet PO SCH ×3 (08:00→20:22)
[2019-02-22] MEDS: ciprofloxacin 250mg tablet PO SCH (09:03)
[2019-02-22] MEDS: linezolid 600mg tablet PO SCH ×2 (09:03→20:21)
[2019-02-22] MEDS: HYDROcodone/acetaminophen 5mg/325mg tablet PO PRN (11:06)
[2019-02-22] MEDS ORDERED: ringers solution, lacted 1,000 ML IV SCH (12:13)
[2019-02-22] MEDS ORDERED: ondansetron/PF 4mg/2ml inj IV PRN (12:15)
[2019-02-22] MEDS ORDERED: meperidine/PF 25mg/ml syringe IV PRN ×3 (12:15)
[2019-02-22] MEDS ORDERED: morphine 4 MG/ML inj SYRINge IV PRN ×2 (12:15)
[2019-02-22] MEDS ORDERED: proCHLORperazine 10 MG/2 ml inj IV PRN (12:15)
--- NOTE | 2019-02-22 14:47 | NUR ---
OR staff picking up patient. Report called to recovery room, RN.
[2019-02-22] MEDS ORDERED: ceFAZolin 1000mg inj ONE (14:55)
[2019-02-22] MEDS ORDERED: BUPIVAcaine/PF 2.5 mg/ml (0.25%) 30ml vial ONE (14:55)
--- NOTE | 2019-02-22 14:56 | NUR ---
WOUND VAC EDUCATION PROVIDED BY WOUND CARE 1. Patient instructed to call the Wound Center or their Home Health Agency immediately if: * They notice a change in the color or amount of the fluid in the canister. * Their wound looks more red than usual or has a foul smell. * The skin around their wound looks reddened or irritated. * The dressing feels loose or appears to be loose. * They experience any increase or changes in their pain. * The alarm will not turn off. 2. Patient instructed that they should not be disconnected from suction for more than 2 hours at a time. * If they are not able to get the suction back on, they need to remove the dressing and take all of the foam out of the wound. * Then moisten sterile gauze with normal saline and place on/in the wound. * Change the dressing once a day until arrangements have been made to replace the wound vac dressing. 3. Patient instructed to turn the wound vac machine OFF and call 911 or go to the ED immediately if their canister fills rapidly with blood. 4. If any of these occur while in the hospital tell a nurse immediately. Addendum: 02/22/19 at 1529 by Hayley Christine RN Amended: Links added.
[2019-02-22] MEDS ORDERED: bacitracin 15gm ointment TP ONE (14:57)
[2019-02-22] MEDS ORDERED: desflurane 240ml liquid inh. IH ONE (15:22)
[2019-02-22] MEDS ORDERED: dexamethasone sod phosphate 10mg/ml inj ONE (15:22)
[2019-02-22] MEDS ORDERED: fentaNYL/PF 50MCG/1 ML 2ML syringe ONE (15:35)
[2019-02-22] MEDS ORDERED: midazolam 2 mg/2 ml injection ONE (15:35)
[2019-02-22] MEDS ORDERED: propofol inj 20 ML IV ONE (15:50)
[2019-02-22] MEDS ORDERED: LIDOcaine 2% (20mg/ml) 5ml vial ONE (15:50)
--- NOTE | 2019-02-22 17:00 | NUR ---
Received from OR via BED , accompanied by Anesthesiologist DR GARCIA and report given by Anesthesiolgist. PATIENT WAKING UP, DENIES PAIN, V/S WNL, NEUROVASCULAR CHECKS INTACT, 22G PIV RUE ,LEFT INGUINAL THIGH AREA WITH WV AT 75 CONTINOUS SUCTION WITH NO LEAKS DETECTED CDI AND LEFT FOOT AT 125 CONTINOUS SUCTION CDI WITH NO LEAKS DETECTED
--- NOTE | 2019-02-22 17:40 | NUR ---
PATIENT A&OX4, DENIES PAIN, V/S WNL, NEUROVASCULAR CHECKS INTACT, 22G PIV RUE ,LEFT INGUINAL THIGH AREA WITH WV AT 75 CONTINOUS SUCTION WITH NO LEAKS DETECTED CDI AND LEFT FOOT AT 125 CONTINOUS SUCTION CDI WITH NO LEAKS DETECTED- PATIENT TAKEN TO 357B WITH ALL BELONGINGS AND HOOKED UP TO MONITORS IN ROOM AND REPORT GIVEN TO ASSEMBLER FLUORESCENT LIGHTS WHO HAS TAKEN OVER PATIENT CARE.
--- NOTE | 2019-02-22 17:45 | NUR ---
Patient arrived to the floor, VSS. received report from DAVID Barnard in recovery.
--- NOTE | 2019-02-22 18:05 | NUR ---
Patient temperature decreased. Bear hugger ordered will place on patient
--- NOTE | 2019-02-22 18:33 | NUR ---
Problems reprioritized. Patient report given, questions answered & plan of care reviewed with DAVID Vidales.
--- NOTE | 2019-02-22 18:44 | NUR ---
Patient in room [facility]. I have received report from Shannon HERNANDEZ and had the opportunity to ask questions and assume patient care.
[2019-02-22] MEDS: famotidine 20mg tablet PO SCH (20:22)
[2019-02-22] MEDS: amLODIPine 5mg tablet PO SCH (20:22)
--- NOTE | 2019-02-22 21:50 | NUR ---
Bladder scanned patient at 850ml. Patient unable to void. Straight cath preformed and 775ml light yellow urine obtained.
--- NOTE | 2019-02-22 23:18 | NUR ---
Wound vac on the foot was not holding suction. Called MD and obtained wet to dry dressing for left foot. Wound vac taken off and wet to dry dressing placed.
[2019-02-23] VITALS (10 sets, daily range): BP systolic 111–147; BP diastolic 69–80
--- NOTE | 2019-02-23 | NUR ---
DRESSING TO LEFT FOOT, SAT X1 BOX KERLEX WITH SEROUSANG DRNG. PT WAS LAYING WITH FOOT OFF PILLOW ON BED ON SIDE. CHANGED OUT DRESSING GAUZE AND KERLEX X2. FOB ELEVATED. FOOT ELEVATED ON PILLOW. Addendum: 02/23/19 at 0145 by Jabari Cantrell RN Amended: Links added.
--- NOTE | 2019-02-23 02:36 | NUR ---
Changed dressing on foot. Kerlix x1 and 2 packages of 4x4's. Jitendra wrap applied and foot elevated on pillow. Vitals taken. Will continue to monitor for bleeding.
--- NOTE | 2019-02-23 04:06 | NUR ---
Spoke with MD about no labs for AM shift and patient has been bleeding threw surgical site all night. MD says to speak with day time MD about what labs they would like.
--- NOTE | 2019-02-23 05:45 | NUR ---
Bladder scanned patient at 400ml. Received order for Gill for retention. Catheter placed with 600ml of yellow urine.
--- NOTE | 2019-02-23 06:00 | NUR ---
Patient in room [facility] 357. I have received report from NGA HERNANDEZ and had the opportunity to ask questions and assume patient care.
--- NOTE | 2019-02-23 06:09 | NUR ---
Problems reprioritized. Patient report given, questions answered & plan of care reviewed with Taylor HERNANDEZ.
[2019-02-23] MEDS: ciprofloxacin 250mg tablet PO SCH (07:25)
[2019-02-23] MEDS: metoprolol tartrate 50mg tablet PO SCH ×2 (07:26→20:42)
[2019-02-23] MEDS: linezolid 600mg tablet PO SCH ×2 (07:26→20:42)
[2019-02-23] MEDS: lactobacillus rhamnosus 10,000 MMU CELLS/CAPSULE PO SCH ×2 (07:26→20:41)
[2019-02-23 07:27] LABS: BASOPHILS % (AUTO) 0.5 % (0-1); EOSINOPHILS % (AUTO) 0.1 % (0-6); LYMPHOCYTES # (AUTO) 0.7 X10'3 (1.1-4.8); LYMPHOCYTES % (AUTO) 13.8 % (21-51); MEAN CORPUSCULAR HEMOGLOBIN 32.3 PG (27.0-31.0); MEAN CORPUSCULAR HGB CONC 34.8 g/dL (33.0-36.5); MEAN CORPUSCULAR VOLUME 92.7 FL (78-98); MEAN PLATELET VOLUME 6.5 FL (7.4-10.4); MONOCYTES # (AUTO) 0.3 X10'3 (0-0.9); MONOCYTES % (AUTO) 5.3 % (2-12); NEUTROPHILS % (AUTO) 80.3 % (42-75); PLATELET COUNT 212 X10'3 (140-440); RED BLOOD COUNT 2.13 X10'6 (4.20-5.60)
[2019-02-23] MEDS: normal saline 1000ml 1,000 ML IV SCH ×2 (07:28→23:13)
[2019-02-23 07:31] LABS: HEMATOCRIT 19.8 % (35.0-45.0); HEMOGLOBIN 6.9 g/dl (12.0-16.0)
--- NOTE | 2019-02-23 07:32 | NUR ---
Critical H&H from lab (6.9 & 19.8) received and reported to DAVID Vazquez.
[2019-02-23 07:43] LABS: ALANINE AMINOTRANSFERASE 16 U/L (12-78); ALBUMIN 2.2 G/DL (3.4-5.0); ALBUMIN/GLOBULIN RATIO 0.6 (1.1-1.5); ALKALINE PHOSPHATASE 88 IU/L (46-116); ANION GAP 14 (8-16); ASPARTATE AMINO TRANSFERASE 15 U/L (10-37); BILIRUBIN,TOTAL 0.2 MG/DL (0.1-1.0); BLOOD UREA NITROGEN 24 MG/DL (7-18); BUN/CREATININE RATIO 8.7 (6.6-38.0); CHLORIDE 107 MMOL/L (99-107); CREATININE 2.75 MG/DL (0.40-0.90); GLUCOSE 145 MG/DL (70-104); POTASSIUM 4.4 MMOL/L (3.5-5.1); SODIUM 137 MMOL/L (135-145); TOTAL PROTEIN 6.1 G/DL (6.4-8.2); eGFR 17 ML/MIN
--- NOTE | 2019-02-23 07:43 | NUR ---
PAGER ID: [phone] MESSAGE: ODILIA [id number] RE: RUDDY BrantleyB CRITICAL H&H ..
[2019-02-23] MEDS: K and/or MAG REPLACEMENT MC SCH (08:00)
--- NOTE | 2019-02-23 15:48 | NUR ---
nutrition consult: RE pt requests high protein shakes. MARYAN d/w RN and pt seems slight "off" today per RN especially given fact pt seen by RD and declined ONS since she drinks at home. MARYAN notified RN that if pt diet advanced to regular from carb controlled she can receive high protein David shakes for wound healing. Pt has no hx DM and does not need carb controlled diet. Once diet is advanced can add David high protein shakes if pt PO ~50% meals; currently decreased to 0% from 50-75% avg prior. [facility] 02/19. Will continue to monitor. Rec: 1. return to regular diet; David high pro shakes once on regular diet 2. MVI for wounds 3. wt per rx Addendum: 02/23/19 at [address] Amended: Links added.
--- NOTE | 2019-02-23 16:06 | NUR ---
PAGER ID: [phone] MESSAGE: ODILIA [id number] RE: RUDDY BrantleyB PT IS GETTING BLOOD DO YOU WANTS LABS AFTER OR IN AM??
--- NOTE | 2019-02-23 17:00 | NUR ---
REINFORCED DRESSING ON LEFT FOOT WITH GAUZE, KERLIX AND NETO WRAP, WILL CONTINUE TO MONITOR.
--- NOTE | 2019-02-23 18:35 | NUR ---
Problems reprioritized. Patient report given, questions answered & plan of care reviewed with RACHELLE BUSH RN.
--- NOTE | 2019-02-23 18:40 | NUR ---
Patient in room [facility] 357. I have received report from WENDIE HERNANDEZ and had the opportunity to ask questions and assume patient care.
[2019-02-23] MEDS ORDERED: apixaban 5mg tablet PO SCH (20:00)
[2019-02-23] MEDS: famotidine 20mg tablet PO SCH (20:42)
[2019-02-23] MEDS: amLODIPine 5mg tablet PO SCH (20:42)
[2019-02-24] VITALS (13 sets, daily range): BP systolic 114–163; BP diastolic 64–80
--- NOTE | 2019-02-24 03:00 | NUR ---
PATIENT PULLED HER PIV AND KIND OF CONFUSED AT THIS TIME AND REFUSED TO HAVE A NEW PIV AT THIS TIME.
[2019-02-24] MEDS: HYDROcodone/acetaminophen 5mg/325mg tablet PO PRN (03:32)
[2019-02-24 06:03] LABS: MEAN CORPUSCULAR HEMOGLOBIN 31.8 PG (27.0-31.0); MEAN CORPUSCULAR HGB CONC 34.8 g/dL (33.0-36.5); MEAN CORPUSCULAR VOLUME 91.5 FL (78-98); MEAN PLATELET VOLUME 6.5 FL (7.4-10.4); PLATELET COUNT 183 X10'3 (140-440); RED BLOOD COUNT 1.98 X10'6 (4.20-5.60); RED CELL DISTRIBUTION WIDTH 14.4 % (11.5-14.5); WHITE BLOOD COUNT 6.4 X10'3 (4.5-11.0)
[2019-02-24 06:19] LABS: HEMOGLOBIN 6.3 g/dl (12.0-16.0)
[2019-02-24 06:20] LABS: HEMATOCRIT 18.1 % (35.0-45.0)
[2019-02-24 06:24] LABS: ALBUMIN 2.2 G/DL (3.4-5.0); ANION GAP 12 (8-16); BLOOD UREA NITROGEN 25 MG/DL (7-18); BUN/CREATININE RATIO 9.2 (6.6-38.0); CHLORIDE 110 MMOL/L (99-107); CREATININE 2.73 MG/DL (0.40-0.90); GLUCOSE 98 MG/DL (70-104); SODIUM 140 MMOL/L (135-145); TOTAL CARBON DIOXIDE 18.5 MMOL/L (24-32); eGFR 18 ML/MIN
--- NOTE | 2019-02-24 06:28 | NUR ---
SAJI YANEZ AND WAS INFORMED OF CRITICAL H&H 6.3 AND 18.1 WITH ORDER TO REPEAT CBC.
--- NOTE | 2019-02-24 06:30 | NUR ---
Problems reprioritized. Patient report given, questions answered & plan of care reviewed with HERNAN HERNANDEZ.
--- NOTE | 2019-02-24 06:49 | NUR ---
PATIENT WITH AT BEDSIDE. PATIENT CONFUSED AND REORIENTED BY MYSELF AND RESOURCE RN, ARY. ARY IN AT BEDSIDE ATTEMPTING TO REPLACE IV.
--- NOTE | 2019-02-24 06:49 | NUR ---
Patient in room [facility] 357. I have received report from DAVID QUACH and had the opportunity to ask questions and assume patient care.
[2019-02-24] MEDS: linezolid 600mg tablet PO SCH ×2 (07:30→21:21)
[2019-02-24] MEDS: ciprofloxacin 250mg tablet PO SCH (07:30)
[2019-02-24] MEDS: metoprolol tartrate 50mg tablet PO SCH ×2 (07:30→19:02)
[2019-02-24] MEDS: lactobacillus rhamnosus 10,000 MMU CELLS/CAPSULE PO SCH ×2 (07:30→19:26)
[2019-02-24 07:33] LABS: BASOPHILS # (AUTO) 0.1 X10'3 (0-0.2); BASOPHILS % (AUTO) 1.4 % (0-1); EOSINOPHILS # (AUTO) 0.1 X10'3 (0-0.9); EOSINOPHILS % (AUTO) 2.5 % (0-6); LYMPHOCYTES # (AUTO) 1.6 X10'3 (1.1-4.8); LYMPHOCYTES % (AUTO) 28.1 % (21-51); MEAN CORPUSCULAR HEMOGLOBIN 31.5 PG (27.0-31.0); MEAN CORPUSCULAR HGB CONC 34.5 g/dL (33.0-36.5); MEAN CORPUSCULAR VOLUME 91.4 FL (78-98); MEAN PLATELET VOLUME 6.3 FL (7.4-10.4); MONOCYTES # (AUTO) 0.5 X10'3 (0-0.9); MONOCYTES % (AUTO) 8.1 % (2-12); NEUTROPHILS # (AUTO) 3.5 X10'3 (1.8-7.7); NEUTROPHILS % (AUTO) 59.9 % (42-75); PLATELET COUNT 198 X10'3 (140-440); RED BLOOD COUNT 2.16 X10'6 (4.20-5.60); RED CELL DISTRIBUTION WIDTH 14.6 % (11.5-14.5); WHITE BLOOD COUNT 5.8 X10'3 (4.5-11.0)
[2019-02-24 07:45] LABS: HEMATOCRIT 19.7 % (35.0-45.0); HEMOGLOBIN 6.8 g/dl (12.0-16.0)
[2019-02-24] MEDS: clopidogrel 75mg tablet PO SCH (08:00)
[2019-02-24] MEDS: apixaban 5mg tablet PO SCH ×2 (08:00→19:26)
[2019-02-24] MEDS: K and/or MAG REPLACEMENT MC SCH (08:00)
[2019-02-24] MEDS: normal saline 1000ml 1,000 ML IV SCH (10:39)
[2019-02-24] MEDS: High Protein Smoothie Arginine/Glut./Ca2+Bmb (Juven 19.3pkt) 240ml cup PO SCH (12:30)
--- NOTE | 2019-02-24 13:57 | NUR ---
Recommend high protein smoothies with david for lunch and dinner. patient needs increased protein for wound healing needs. Appetite is improving. Rec: 1. continue heart healthy diet 2. send high protein smoothies with David with lunch and dinner 3. MVI for wounds 4. wt per rx Addendum: 02/24/19 at [address] Amended: Links added.
--- NOTE | 2019-02-24 14:37 | NUR ---
Problems reprioritized. Patient report given, questions answered & plan of care reviewed with DAVID BROCK.
--- NOTE | 2019-02-24 14:44 | NUR ---
Patient in room [facility] 357. I have received report from DAVID Lee and had the opportunity to ask questions and assume patient care.
[2019-02-24 17:25] LABS: MEAN CORPUSCULAR HEMOGLOBIN 31.5 PG (27.0-31.0); MEAN CORPUSCULAR HGB CONC 34.3 g/dL (33.0-36.5); MEAN CORPUSCULAR VOLUME 91.7 FL (78-98); MEAN PLATELET VOLUME 6.3 FL (7.4-10.4); PLATELET COUNT 179 X10'3 (140-440); RED CELL DISTRIBUTION WIDTH 14.5 % (11.5-14.5); WHITE BLOOD COUNT 5.8 X10'3 (4.5-11.0)
[2019-02-24 17:28] LABS: HEMATOCRIT 20.2 % (35.0-45.0); HEMOGLOBIN 6.9 g/dl (12.0-16.0)
--- NOTE | 2019-02-24 17:30 | NUR ---
Dr. Muñiz notified of patient's critical hgb and hct 6.9 and 20.2 after receiving one unit.
--- NOTE | 2019-02-24 18:30 | NUR ---
Patient in room [facility] 357. I have received report from Nydia HERNANDEZ and had the opportunity to ask questions and assume patient care.
--- NOTE | 2019-02-24 18:48 | NUR ---
Problems reprioritized. Patient report given, questions answered & plan of care reviewed with Vamshi HERNANDEZ.
[2019-02-24] MEDS: amLODIPine 5mg tablet PO SCH (20:12)
[2019-02-24] MEDS: famotidine 20mg tablet PO SCH (20:12)
[2019-02-24 22:18] LABS: HEMATOCRIT 23.6 % (35.0-45.0); HEMOGLOBIN 8.2 g/dl (12.0-16.0); MEAN CORPUSCULAR HEMOGLOBIN 31.4 PG (27.0-31.0); MEAN CORPUSCULAR HGB CONC 34.7 g/dL (33.0-36.5); MEAN CORPUSCULAR VOLUME 90.6 FL (78-98); MEAN PLATELET VOLUME 6.3 FL (7.4-10.4); PLATELET COUNT 170 X10'3 (140-440); RED BLOOD COUNT 2.61 X10'6 (4.20-5.60); RED CELL DISTRIBUTION WIDTH 14.1 % (11.5-14.5); WHITE BLOOD COUNT 6.8 X10'3 (4.5-11.0)
[2019-02-25] VITALS: BP 157/85
[2019-02-25] MEDS: normal saline 1000ml 1,000 ML IV SCH ×2 (01:16→16:21)
--- NOTE | 2019-02-25 06:40 | NUR ---
Patient in room [facility] 357. I have received report from DAVID Smiley and had the opportunity to ask questions and assume patient care.
--- NOTE | 2019-02-25 06:50 | NUR ---
Problems reprioritized. Patient report given, questions answered & plan of care reviewed with Nydia RN. Bed alarm is on
[2019-02-25 07:05] VITALS: BP 147/83
[2019-02-25] MEDS: K and/or MAG REPLACEMENT MC SCH (08:00)
[2019-02-25] MEDS: linezolid 600mg tablet PO SCH ×2 (09:31→20:23)
[2019-02-25] MEDS: lactobacillus rhamnosus 10,000 MMU CELLS/CAPSULE PO SCH ×2 (09:31→20:22)
[2019-02-25] MEDS: metoprolol tartrate 50mg tablet PO SCH ×2 (09:31→20:22)
[2019-02-25] MEDS: ciprofloxacin 250mg tablet PO SCH (09:31)
[2019-02-25] MEDS: clopidogrel 75mg tablet PO SCH (10:01)
[2019-02-25 11:00] VITALS: BP 137/76
[2019-02-25 11:14] LABS: BASOPHILS # (AUTO) 0.1 X10'3 (0-0.2); BASOPHILS % (AUTO) 1.2 % (0-1); EOSINOPHILS # (AUTO) 0.1 X10'3 (0-0.9); EOSINOPHILS % (AUTO) 1.2 % (0-6); HEMATOCRIT 24.6 % (35.0-45.0); HEMOGLOBIN 8.6 g/dl (12.0-16.0); LYMPHOCYTES # (AUTO) 1.2 X10'3 (1.1-4.8); MEAN CORPUSCULAR HEMOGLOBIN 31.4 PG (27.0-31.0); MEAN CORPUSCULAR HGB CONC 34.9 g/dL (33.0-36.5); MEAN PLATELET VOLUME 6.2 FL (7.4-10.4); MONOCYTES # (AUTO) 0.5 X10'3 (0-0.9); MONOCYTES % (AUTO) 7.3 % (2-12); NEUTROPHILS # (AUTO) 5.3 X10'3 (1.8-7.7); NEUTROPHILS % (AUTO) 73.3 % (42-75); PLATELET COUNT 167 X10'3 (140-440); RED BLOOD COUNT 2.73 X10'6 (4.20-5.60); WHITE BLOOD COUNT 7.2 X10'3 (4.5-11.0)
[2019-02-25 11:19] LABS: ALBUMIN 2.5 G/DL (3.4-5.0); ANION GAP 12 (8-16); BLOOD UREA NITROGEN 29 MG/DL (7-18); BUN/CREATININE RATIO 13.1 (6.6-38.0); CHLORIDE 107 MMOL/L (99-107); CREATININE 2.22 MG/DL (0.40-0.90); GLUCOSE 139 MG/DL (70-104); POTASSIUM 3.8 MMOL/L (3.5-5.1); SODIUM 139 MMOL/L (135-145); TOTAL CARBON DIOXIDE 20.1 MMOL/L (24-32); eGFR 22 ML/MIN
[2019-02-25] MEDS: apixaban 5mg tablet PO SCH ×2 (17:18→19:24)
[2019-02-25 18:00] VITALS: BP 145/86
--- NOTE | 2019-02-25 18:29 | NUR ---
Problems reprioritized. Patient report given, questions answered & plan of care reviewed with DAVID Bonds.
--- NOTE | 2019-02-25 18:30 | NUR ---
Patient in room [facility] 357. I have received report from Nydia HERNANDEZ and had the opportunity to ask questions and assume patient care.
[2019-02-25] MEDS: amLODIPine 5mg tablet PO SCH (20:22)
[2019-02-25] MEDS: famotidine 20mg tablet PO SCH (20:22)
--- NOTE | 2019-02-25 22:39 | NUR ---
Noah THOMAS paged: PAGER ID: [phone] MESSAGE: Deonteelizabethgael [id number] Surgical [id number] Vamshi HERNANDEZ Patient BP is 160/92 after PM BP meds, also, pt has groin rash/redness.
[2019-02-25 23:00] VITALS: BP 160/92
[2019-02-26] MEDS: normal saline 1000ml 1,000 ML IV SCH ×2 (05:30→22:43)
[2019-02-26 05:42] LABS: ALBUMIN 2.6 G/DL (3.4-5.0); ANION GAP 10 (8-16); BLOOD UREA NITROGEN 25 MG/DL (7-18); BUN/CREATININE RATIO 13.1 (6.6-38.0); CALCIUM 8.3 MG/DL (8.5-10.1); CHLORIDE 106 MMOL/L (99-107); CREATININE 1.91 MG/DL (0.40-0.90); GLUCOSE 120 MG/DL (70-104); POTASSIUM 3.5 MMOL/L (3.5-5.1); SODIUM 137 MMOL/L (135-145); TOTAL CARBON DIOXIDE 21.5 MMOL/L (24-32); eGFR 27 ML/MIN
[2019-02-26 06:19] LABS: BASOPHILS # (AUTO) 0.1 X10'3 (0-0.2); BASOPHILS % (AUTO) 1.3 % (0-1); EOSINOPHILS # (AUTO) 0.2 X10'3 (0-0.9); EOSINOPHILS % (AUTO) 3.3 % (0-6); HEMATOCRIT 24.8 % (35.0-45.0); HEMOGLOBIN 8.9 g/dl (12.0-16.0); LYMPHOCYTES # (AUTO) 1.4 X10'3 (1.1-4.8); LYMPHOCYTES % (AUTO) 22.9 % (21-51); MEAN CORPUSCULAR HGB CONC 35.8 g/dL (33.0-36.5); MEAN CORPUSCULAR VOLUME 89.3 FL (78-98); MEAN PLATELET VOLUME 6.4 FL (7.4-10.4); MONOCYTES # (AUTO) 0.4 X10'3 (0-0.9); MONOCYTES % (AUTO) 6.8 % (2-12); NEUTROPHILS % (AUTO) 65.7 % (42-75); PLATELET COUNT 151 X10'3 (140-440); RED BLOOD COUNT 2.78 X10'6 (4.20-5.60); RED CELL DISTRIBUTION WIDTH 13.7 % (11.5-14.5); WHITE BLOOD COUNT 6.1 X10'3 (4.5-11.0)
[2019-02-26 06:30] VITALS: BP 183/81
--- NOTE | 2019-02-26 06:45 | NUR ---
Patient in room [facility] 357. I have received report from DAVID Bonds and had the opportunity to ask questions and assume patient care.
--- NOTE | 2019-02-26 07:02 | NUR ---
Problems reprioritized. Patient report given, questions answered & plan of care reviewed with Judit RN.
[2019-02-26] MEDS: K and/or MAG REPLACEMENT MC SCH (07:17)
[2019-02-26] MEDS: lactobacillus rhamnosus 10,000 MMU CELLS/CAPSULE PO SCH ×2 (08:21→20:11)
[2019-02-26] MEDS: clopidogrel 75mg tablet PO SCH (08:22)
[2019-02-26] MEDS: apixaban 5mg tablet PO SCH ×2 (08:22→20:10)
[2019-02-26] MEDS: linezolid 600mg tablet PO SCH (08:22)
[2019-02-26] MEDS: ciprofloxacin 250mg tablet PO SCH (08:22)
[2019-02-26] MEDS: metoprolol tartrate 50mg tablet PO SCH ×2 (08:22→20:11)
[2019-02-26 11:30] VITALS: BP 126/71
[2019-02-26] MEDS: High Protein Smoothie Arginine/Glut./Ca2+Bmb (Juven 19.3pkt) 240ml cup PO SCH ×4 (12:30→17:30)
--- NOTE | 2019-02-26 14:33 | NUR ---
Reassessment: Pt PO 75-100% heart healthy diet w/ David high protein shakes BIDRITA meeting needs. LBM 02/26. No nutrition concerns at this time. Rec: 1. continue heart healthy diet 2. send high protein smoothies with David with lunch and dinner 3. MVI for wounds 4. wt per rx Addendum: 02/26/19 at [address] Amended: Links added.
--- NOTE | 2019-02-26 17:13 | NUR ---
Linked med note re:protein shake. Non admin several shakes beginning 02/24 due to just recently showed up on the eMAR.
[2019-02-26 20:00] VITALS: BP 140/75
[2019-02-26] MEDS: amLODIPine 5mg tablet PO SCH (20:10)
[2019-02-26] MEDS: famotidine 20mg tablet PO SCH (20:11)
--- NOTE | 2019-02-27 05:02 | NUR ---
Patient in room [facility] 357. I have received report from DAVID Spain and had the opportunity to ask questions and assume patient care. Addendum: 02/27/19 at 0504 by Britni Hansen RN Amended: Links added.
--- NOTE | 2019-02-27 06:25 | NUR ---
Patient in room [facility] 357. I have received report from DAVID Ryder and had the opportunity to ask questions and assume patient care.
--- NOTE | 2019-02-27 06:31 | NUR ---
Problems reprioritized. Patient report given, questions answered & plan of care reviewed with DAVID Spain. Addendum: 02/27/19 at 0631 by Britni Hansen RN Amended: Links added.
[2019-02-27] MEDS: K and/or MAG REPLACEMENT MC SCH (06:49)
[2019-02-27] MEDS: High Protein Smoothie Arginine/Glut./Ca2+Bmb (Juven 19.3pkt) 240ml cup PO SCH (06:50)
[2019-02-27 07:23] VITALS: BP 162/97
[2019-02-27] MEDS: metoprolol tartrate 50mg tablet PO SCH ×2 (08:28→19:40)
[2019-02-27] MEDS: clopidogrel 75mg tablet PO SCH (08:29)
[2019-02-27] MEDS: lactobacillus rhamnosus 10,000 MMU CELLS/CAPSULE PO SCH ×2 (08:29→19:39)
[2019-02-27] MEDS: apixaban 5mg tablet PO SCH ×2 (08:29→19:39)
[2019-02-27] MEDS: normal saline 1000ml 1,000 ML IV SCH (10:37)
[2019-02-27 11:00] VITALS: BP 150/79
[2019-02-27] MEDS: lactose-reduced food (Ensure High Protein) 237ml bottle PO SCH ×2 (12:30→17:30)
--- NOTE | 2019-02-27 18:05 | NUR ---
Problems reprioritized. Patient report given, questions answered & plan of care reviewed with DAVID Shaffer & DAVID Ryder.
--- NOTE | 2019-02-27 18:36 | NUR ---
Patient in room [facility] 357. I have received report from john HERNANDEZ and had the opportunity to ask questions and assume patient care.
[2019-02-27] MEDS: amLODIPine 5mg tablet PO SCH (19:40)
[2019-02-27 20:00] VITALS: BP 143/83
--- NOTE | 2019-02-27 20:00 | NUR ---
Held pepcid due to patient getting confused
[2019-02-27] MEDS: famotidine 20mg tablet PO SCH (20:04)
--- NOTE | 2019-02-28 00:01 | NUR ---
Student documentation: I have reviewed and agree with all interventions, assessments performed and documented by DAVID Shaffer. Addendum: 02/28/19 at 0002 by Britni Hansen RN Amended: Links added.
[2019-02-28] MEDS: normal saline 1000ml 1,000 ML IV SCH ×2 (00:12→17:06)
[2019-02-28 00:23] VITALS: BP 137/72
[2019-02-28 05:00] LABS: BASOPHILS # (AUTO) 0.1 X10'3 (0-0.2); EOSINOPHILS # (AUTO) 0.6 X10'3 (0-0.9); EOSINOPHILS % (AUTO) 9.5 % (0-6); HEMATOCRIT 23.5 % (35.0-45.0); HEMOGLOBIN 8.4 g/dl (12.0-16.0); LYMPHOCYTES # (AUTO) 1.5 X10'3 (1.1-4.8); LYMPHOCYTES % (AUTO) 22.1 % (21-51); MEAN CORPUSCULAR HEMOGLOBIN 31.8 PG (27.0-31.0); MEAN CORPUSCULAR HGB CONC 35.7 g/dL (33.0-36.5); MEAN PLATELET VOLUME 6.1 FL (7.4-10.4); MONOCYTES # (AUTO) 0.6 X10'3 (0-0.9); MONOCYTES % (AUTO) 8.5 % (2-12); NEUTROPHILS # (AUTO) 3.9 X10'3 (1.8-7.7); NEUTROPHILS % (AUTO) 58.9 % (42-75); PLATELET COUNT 122 X10'3 (140-440); RED BLOOD COUNT 2.64 X10'6 (4.20-5.60); RED CELL DISTRIBUTION WIDTH 13.7 % (11.5-14.5); WHITE BLOOD COUNT 6.6 X10'3 (4.5-11.0)
[2019-02-28 05:16] LABS: ALBUMIN 2.8 G/DL (3.4-5.0); ANION GAP 13 (8-16); BLOOD UREA NITROGEN 26 MG/DL (7-18); BUN/CREATININE RATIO 17.8 (6.6-38.0); CALCIUM 8.5 MG/DL (8.5-10.1); CHLORIDE 108 MMOL/L (99-107); CREATININE 1.46 MG/DL (0.40-0.90); GLUCOSE 107 MG/DL (70-104); POTASSIUM 3.3 MMOL/L (3.5-5.1); SODIUM 142 MMOL/L (135-145); TOTAL CARBON DIOXIDE 21.3 MMOL/L (24-32); eGFR 36 ML/MIN
--- NOTE | 2019-02-28 06:17 | NUR ---
Patient in room [facility] 357. I have received report from DAVID Lagunas and had the opportunity to ask questions and assume patient care. patient resting comfortably at this time. Call light and items of frequent use in reach of patient.
--- NOTE | 2019-02-28 06:25 | NUR ---
Problems reprioritized. Patient report given, questions answered & plan of care reviewed with Ila HERNANDEZ.
[2019-02-28 07:00] VITALS: BP 155/76
[2019-02-28] MEDS: K and/or MAG REPLACEMENT MC SCH (08:00)
[2019-02-28] MEDS: lactobacillus rhamnosus 10,000 MMU CELLS/CAPSULE PO SCH ×2 (08:56→20:31)
[2019-02-28] MEDS: metoprolol tartrate 50mg tablet PO SCH ×2 (08:57→20:30)
[2019-02-28] MEDS: apixaban 5mg tablet PO SCH ×2 (08:57→20:31)
[2019-02-28] MEDS: clopidogrel 75mg tablet PO SCH (08:57)
[2019-02-28] MEDS ORDERED: magnesium 4gm in 100ml NS 100 ML IV PRN (09:15)
[2019-02-28] MEDS ORDERED: potassium CL 10mEq/100ml bag 100 ML IV PRN (09:15)
[2019-02-28] MEDS ORDERED: potassium Cl 20 mEq SR tablet PO PRN ×2 (09:15)
[2019-02-28] MEDS ORDERED: potassium Cl 20 mEq SR tablet PO STA (10:03)
[2019-02-28] MEDS ORDERED: HYDR-4383 PO (10:57)
[2019-02-28 11:00] VITALS: BP 159/74
[2019-02-28] MEDS: lactose-reduced food (Ensure High Protein) 237ml bottle PO SCH ×2 (13:08→17:48)
--- NOTE | 2019-02-28 15:26 | NUR ---
Patient to CT scan via wheelchair with x1 staff
--- NOTE | 2019-02-28 15:50 | NUR ---
Patient return from CT, patient alert, oriented and in no apparent distress at this time
--- NOTE | 2019-02-28 16:16 | NUR ---
Patient given 40 mEq of K-Dur tablet to increase K of 3.3. Patient was given the 40 mEq because she was supposed to be discharged today and MD ordered just to give a one time dose. Patient is no longer being discharged due to wanting to go to rehab facility. Potassium will be redrawn in the morning.
--- NOTE | 2019-02-28 18:35 | NUR ---
Problems reprioritized. Patient report given, questions answered & plan of care reviewed with DAVID Shaffer and DAVID Candelario.
--- NOTE | 2019-02-28 18:44 | NUR ---
Patient in room [facility] 352. I have received report from Ila HERNANDEZ and had the opportunity to ask questions and assume patient care.
[2019-02-28 20:00] VITALS: BP 148/79
[2019-02-28] MEDS: famotidine 20mg tablet PO SCH (20:23)
[2019-02-28] MEDS: amLODIPine 5mg tablet PO SCH (20:30)
[2019-03-01 01:12] VITALS: BP 153/79
--- NOTE | 2019-03-01 02:53 | NUR ---
Student documentation: I have reviewed and agree with all interventions, assessments performed and documented by DAVID Shaffer. Addendum: 03/01/19 at 0253 by Britni Hansen RN Amended: Links added.
[2019-03-01 05:41] LABS: MAGNESIUM 1.3 MG/DL (1.5-2.4); POTASSIUM 3.5 MMOL/L (3.5-5.1)
--- NOTE | 2019-03-01 06:32 | NUR ---
Problems reprioritized. Patient report given, questions answered & plan of care reviewed with Radha HERNANDEZ.
[2019-03-01 07:06] VITALS: BP 162/77
[2019-03-01] MEDS: normal saline 1000ml 1,000 ML IV SCH ×2 (07:55→20:32)
[2019-03-01] MEDS: K and/or MAG REPLACEMENT MC SCH (08:00)
[2019-03-01] MEDS: apixaban 5mg tablet PO SCH ×2 (08:18→20:00)
[2019-03-01] MEDS: lactobacillus rhamnosus 10,000 MMU CELLS/CAPSULE PO SCH ×2 (08:18→20:29)
[2019-03-01] MEDS: metoprolol tartrate 50mg tablet PO SCH ×2 (08:19→20:30)
[2019-03-01] MEDS: clopidogrel 75mg tablet PO SCH (08:19)
[2019-03-01] MEDS: lactose-reduced food (Ensure High Protein) 237ml bottle PO SCH ×2 (13:17→17:30)
[2019-03-01] MEDS ORDERED: LORazepam 2 mg/ml vial IV ONE (17:05)
--- NOTE | 2019-03-01 18:35 | NUR ---
Patient in room [facility] 352. I have received report from Radha HERNANDEZ and had the opportunity to ask questions and assume patient care.
[2019-03-01] MEDS: amLODIPine 5mg tablet PO SCH (20:29)
[2019-03-01] MEDS: magnesium Cl slow-release 64mg tablet PO PRN (20:31)
[2019-03-01 20:58] VITALS: BP 143/83
[2019-03-01] MEDS: famotidine 20mg tablet PO SCH (21:00)
--- NOTE | 2019-03-01 23:00 | NUR ---
Patient might go to surgery Wednesday depending on the results of the MRI that was done today.Dr De La Rosa notified tonight orders to hold Eliquis and Plavix until Wednesday.
--- NOTE | 2019-03-01 23:54 | NUR ---
Patient refused medication due to increased infusion.
[2019-03-02 05:02] LABS: MAGNESIUM 1.2 MG/DL (1.5-2.4); POTASSIUM 3.6 MMOL/L (3.5-5.1)
--- NOTE | 2019-03-02 06:00 | NUR ---
Patient in room [facility] 352. I have received report from Marina HERNANDEZ and DAVID Shaffer and had the opportunity to ask questions and assume patient care.
--- NOTE | 2019-03-02 06:28 | NUR ---
Problems reprioritized. Patient report given, questions answered & plan of care reviewed with Candace HERNANDEZ.
[2019-03-02 07:30] VITALS: BP 133/83
[2019-03-02] MEDS: K and/or MAG REPLACEMENT MC SCH (08:00)
[2019-03-02] MEDS: metoprolol tartrate 50mg tablet PO SCH ×2 (08:48→21:26)
[2019-03-02] MEDS: lactobacillus rhamnosus 10,000 MMU CELLS/CAPSULE PO SCH ×2 (08:48→21:19)
[2019-03-02] MEDS: magnesium Cl slow-release 64mg tablet PO PRN ×2 (08:48→21:19)
--- NOTE | 2019-03-02 10:21 | NUR ---
Reassessment: Pt continues with 75-100% PO intake on heart healthy diet meeting nutrient needs. Noted that high protein ericramon was d/c'ed 02/27 and Ensure High Protein has been ordered BIDLD. [facility] 03/01. Pt awaiting placement to rehab. Will continue to follow. Rec: 1. continue heart healthy diet 2. Ensure High Protein BIDLD 3. MVI for wounds 4. wt per rx Addendum: 03/02/19 at [address] Amended: Links added.
[2019-03-02 11:17] LABS: BASOPHILS # (AUTO) 0.1 X10'3 (0-0.2); BASOPHILS % (AUTO) 1.5 % (0-1); EOSINOPHILS # (AUTO) 0.7 X10'3 (0-0.9); EOSINOPHILS % (AUTO) 8.6 % (0-6); HEMATOCRIT 22.6 % (35.0-45.0); HEMOGLOBIN 7.8 g/dl (12.0-16.0); LYMPHOCYTES # (AUTO) 1.9 X10'3 (1.1-4.8); LYMPHOCYTES % (AUTO) 22.7 % (21-51); MEAN CORPUSCULAR HEMOGLOBIN 31.2 PG (27.0-31.0); MEAN CORPUSCULAR HGB CONC 34.7 g/dL (33.0-36.5); MEAN PLATELET VOLUME 7.6 FL (7.4-10.4); MONOCYTES # (AUTO) 0.9 X10'3 (0-0.9); MONOCYTES % (AUTO) 10.7 % (2-12); NEUTROPHILS # (AUTO) 4.7 X10'3 (1.8-7.7); NEUTROPHILS % (AUTO) 56.5 % (42-75); PLATELET COUNT 123 X10'3 (140-440); RED BLOOD COUNT 2.51 X10'6 (4.20-5.60); RED CELL DISTRIBUTION WIDTH 13.4 % (11.5-14.5); WHITE BLOOD COUNT 8.3 X10'3 (4.5-11.0)
[2019-03-02 11:30] LABS: ALANINE AMINOTRANSFERASE 30 U/L (12-78); ALBUMIN 2.8 G/DL (3.4-5.0); ALBUMIN/GLOBULIN RATIO 0.7 (1.1-1.5); ALKALINE PHOSPHATASE 104 IU/L (46-116); ANION GAP 9 (8-16); ASPARTATE AMINO TRANSFERASE 23 U/L (10-37); BILIRUBIN,TOTAL 0.3 MG/DL (0.1-1.0); BLOOD UREA NITROGEN 24 MG/DL (7-18); BUN/CREATININE RATIO 17.1 (6.6-38.0); CALCIUM 8.5 MG/DL (8.5-10.1); CHLORIDE 105 MMOL/L (99-107); GLUCOSE 175 MG/DL (70-104); POTASSIUM 3.6 MMOL/L (3.5-5.1); SODIUM 137 MMOL/L (135-145); TOTAL CARBON DIOXIDE 23.1 MMOL/L (24-32); TOTAL PROTEIN 6.8 G/DL (6.4-8.2); eGFR 38 ML/MIN
[2019-03-02 11:53] VITALS: BP 153/71
[2019-03-02] MEDS: lactose-reduced food (Ensure High Protein) 237ml bottle PO SCH ×2 (12:30→17:30)
[2019-03-02] MEDS: normal saline 1000ml 1,000 ML IV SCH (12:58)
[2019-03-02] MEDS ORDERED: ceFAZolin 2gm in dextrose, iso 100 ML IV ONE (14:05)
--- NOTE | 2019-03-02 18:00 | NUR ---
Problems reprioritized. Patient report given, questions answered & plan of care reviewed with DAVID Gray and DAVID Winkler.
[2019-03-02 19:00] VITALS: BP 160/81
--- NOTE | 2019-03-02 19:40 | NUR ---
Patient in room [facility] 352. I have received report from Amie HERNANDEZ and had the opportunity to ask questions and assume patient care.Patient is in bed resting.
[2019-03-02] MEDS: famotidine 20mg tablet PO SCH (21:19)
[2019-03-02] MEDS: amLODIPine 5mg tablet PO SCH (21:19)
[2019-03-02] MEDS: nystatin 15 GM powder TP SCH (21:19)
[2019-03-03] VITALS (31 sets, daily range): BP systolic 104–188; BP diastolic 41–90
[2019-03-03] MEDS: normal saline 1000ml 1,000 ML IV SCH ×2 (03:13→17:20)
[2019-03-03 03:34] LABS: BASOPHILS # (AUTO) 0.1 X10'3 (0-0.2); BASOPHILS % (AUTO) 1.1 % (0-1); EOSINOPHILS # (AUTO) 0.8 X10'3 (0-0.9); EOSINOPHILS % (AUTO) 8.6 % (0-6); HEMOGLOBIN 7.4 g/dl (12.0-16.0); LYMPHOCYTES # (AUTO) 2.1 X10'3 (1.1-4.8); MEAN CORPUSCULAR HEMOGLOBIN 31.2 PG (27.0-31.0); MEAN CORPUSCULAR HGB CONC 35.2 g/dL (33.0-36.5); MEAN CORPUSCULAR VOLUME 88.7 FL (78-98); MEAN PLATELET VOLUME 7.6 FL (7.4-10.4); MONOCYTES # (AUTO) 1.2 X10'3 (0-0.9); MONOCYTES % (AUTO) 13.5 % (2-12); NEUTROPHILS # (AUTO) 4.7 X10'3 (1.8-7.7); NEUTROPHILS % (AUTO) 52.8 % (42-75); PLATELET COUNT 119 X10'3 (140-440); RED BLOOD COUNT 2.37 X10'6 (4.20-5.60); RED CELL DISTRIBUTION WIDTH 13.5 % (11.5-14.5)
[2019-03-03 03:41] LABS: ALANINE AMINOTRANSFERASE 28 U/L (12-78); ALBUMIN 2.8 G/DL (3.4-5.0); ALBUMIN/GLOBULIN RATIO 0.7 (1.1-1.5); ALKALINE PHOSPHATASE 102 IU/L (46-116); ANION GAP 11 (8-16); ASPARTATE AMINO TRANSFERASE 17 U/L (10-37); BILIRUBIN,TOTAL 0.3 MG/DL (0.1-1.0); BLOOD UREA NITROGEN 20 MG/DL (7-18); BUN/CREATININE RATIO 15.9 (6.6-38.0); CALCIUM 8.6 MG/DL (8.5-10.1); CHLORIDE 106 MMOL/L (99-107); CREATININE 1.26 MG/DL (0.40-0.90); GLUCOSE 113 MG/DL (70-104); MAGNESIUM 1.3 MG/DL (1.5-2.4); POTASSIUM 3.3 MMOL/L (3.5-5.1); SODIUM 138 MMOL/L (135-145); TOTAL CARBON DIOXIDE 21.5 MMOL/L (24-32); TOTAL PROTEIN 6.6 G/DL (6.4-8.2); eGFR 43 ML/MIN
[2019-03-03 03:43] LABS: PARTIAL THROMBOPLASTIN TIME 28 SECONDS (22-32)
--- NOTE | 2019-03-03 05:20 | NUR ---
Patient in room 352 has a critical HCT of 21. Dr Ni notified and a unit of blood ordered. Patient recieving blood now. With patient in the room monitoring .
[2019-03-03] MEDS ORDERED: ceFAZolin 2gm in dextrose, iso 100 ML IV ONE (05:30)
[2019-03-03] MEDS ORDERED: heparin 10,000 units/1 ML INJ ONE (06:58)
[2019-03-03] MEDS ORDERED: LIDOcaine 1% 30ml preserv. free vial ONE (06:58)
[2019-03-03] MEDS ORDERED: ceFAZolin 1000mg inj ONE (06:58)
--- NOTE | 2019-03-03 07:00 | NUR ---
Problems reprioritized. Patient report given, questions answered & plan of care reviewed with Mariam HERNANDEZ.
[2019-03-03] MEDS ORDERED: midazolam 2 mg/2 ml injection ONE ×3 (07:06→07:07)
[2019-03-03] MEDS ORDERED: fentaNYL/PF 50MCG/1 ML 2ML syringe ONE ×2 (07:06→10:16)
[2019-03-03] MEDS ORDERED: phenylephrine inj 20 MG in normal saline 250ml IV soln 250 ML IV PRN (07:07)
[2019-03-03] MEDS ORDERED: nitroPRUSSIDE SODIUM in NS 100 ML IV PRN (07:07)
[2019-03-03] MEDS ORDERED: LIDOcaine 1% (10mg/ml) 2ml vial ONE (07:11)
[2019-03-03] MEDS ORDERED: ringers solution, lacted 1,000 ML IV ONE (07:14)
[2019-03-03] MEDS ORDERED: ringers solution, lacted 1,000 ML IV SCH ×2 (07:16→11:09)
[2019-03-03] MEDS: metoprolol tartrate 50mg tablet PO SCH ×2 (07:18→20:41)
--- NOTE | 2019-03-03 07:19 | NUR ---
PT TRANSFERRED TO OR. PT ALERT AND ORIENTED
[2019-03-03] MEDS ORDERED: ondansetron/PF 4mg/2ml inj IV PRN ×2 (07:20→11:10)
[2019-03-03] MEDS ORDERED: fentaNYL/PF 50MCG/1 ML 2ML syringe IV PRN ×2 (07:20)
[2019-03-03] MEDS ORDERED: labetalol 20mg/4ml (5mg/ml) syringe IV PRN (07:20)
[2019-03-03] MEDS ORDERED: phenylephrine inj 20 MG in normal saline 250ml IV soln 248 ML IV SCH (07:20)
[2019-03-03] MEDS ORDERED: morphine 4 MG/ML inj SYRINge IV PRN ×4 (07:20→11:10)
[2019-03-03] MEDS ORDERED: enalaprilat dihydrate 2.5mg/2ml vial IV PRN (07:20)
[2019-03-03] MEDS: nitroPRUSSIDE in NS 100 ML IV PRN (07:46)
[2019-03-03] MEDS: apixaban 5mg tablet PO SCH ×2 (08:00→20:00)
[2019-03-03] MEDS: clopidogrel 75mg tablet PO SCH (08:00)
[2019-03-03] MEDS: lactobacillus rhamnosus 10,000 MMU CELLS/CAPSULE PO SCH ×2 (08:00→20:40)
[2019-03-03] MEDS: ciprofloxacin 250mg tablet PO SCH (08:00)
[2019-03-03] MEDS: nystatin 15 GM powder TP SCH ×3 (08:00→21:08)
[2019-03-03] MEDS ORDERED: phenylephrine 10mg/ml inj. ONE (08:00)
[2019-03-03] MEDS ORDERED: ondansetron/PF 4mg/2ml inj ONE (08:00)
[2019-03-03] MEDS ORDERED: sevoflurane 250ml liquid IH ONE (08:00)
[2019-03-03] MEDS ORDERED: heparin 1,000unit/ml 10ml vial 10 ML ONE (08:40)
[2019-03-03] MEDS ORDERED: dexamethasone sod phosphate 4mg/ml inj. ONE (09:04)
[2019-03-03] MEDS ORDERED: etomidate 2mg/ml inj. ONE (10:12)
[2019-03-03] MEDS ORDERED: rocuronium 10mg/ml inj IV ONE ×2 (10:12)
[2019-03-03] MEDS ORDERED: neostigmine methylsulfate 1 MG/ML 10ml vial ONE (10:14)
[2019-03-03] MEDS ORDERED: glycopyrrolate 0.2mg/ml inj ONE (10:14)
[2019-03-03] MEDS ORDERED: protamine sulfate 10mg/ml inj. ONE (10:17)
[2019-03-03] MEDS ORDERED: ePHEDrine 50MG/ML INJ. ONE (10:41)
--- NOTE | 2019-03-03 11:00 | NUR ---
Received from OR via bed, accompanied by Anesthesiologist. Report received. Initial physical assessment done and recorded. Right radial art line airzeroed and calibrated with good wave form.
[2019-03-03] MEDS ORDERED: proCHLORperazine 10 MG/2 ml inj IV PRN (11:10)
[2019-03-03] MEDS ORDERED: meperidine/PF 25mg/ml syringe IV PRN ×3 (11:10)
--- NOTE | 2019-03-03 12:00 | NUR ---
Unable to void, bladder is palpable. Call to Dr. Yeager, order for morales given. Morales cath placed without issues, 1200 clear yellow urine returned. No complaints at this time
[2019-03-03] MEDS: lactose-reduced food (Ensure High Protein) 237ml bottle PO SCH ×2 (12:30→17:30)
--- NOTE | 2019-03-03 14:00 | NUR ---
at bedisde, pt denies discomfort. visiting at bedside. Call to ICU for report
--- NOTE | 2019-03-03 14:15 | NUR ---
Discharge criteria met, report to receiving floor. Transferred to room in stable condition.
[2019-03-03] MEDS: K and/or MAG REPLACEMENT MC SCH (16:18)
--- NOTE | 2019-03-03 17:11 | NUR ---
Per Dr Awad, Keep NS at 70, and replace K per protocol, but not mag
[2019-03-03] MEDS ORDERED: potassium Cl 20 mEq SR tablet PO PRN ×2 (17:15)
--- NOTE | 2019-03-03 19:35 | NUR ---
RN Note -MD Communication Dr. Yeager at bedside examining pt. Ok to switch pt to regular diet.
[2019-03-03] MEDS: famotidine 20mg tablet PO SCH (20:40)
[2019-03-03] MEDS: amLODIPine 5mg tablet PO SCH (20:40)
[2019-03-03] MEDS: linezolid 600mg tablet PO SCH (21:09)
[2019-03-04] VITALS (24 sets, daily range): BP systolic 138–173; BP diastolic 53–78
[2019-03-04 05:31] LABS: MAGNESIUM 1.3 MG/DL (1.5-2.4); POTASSIUM 3.7 MMOL/L (3.5-5.1)
[2019-03-04] MEDS: K and/or MAG REPLACEMENT MC SCH (07:39)
[2019-03-04] MEDS: normal saline 1000ml 1,000 ML IV SCH ×2 (07:40→20:44)
[2019-03-04] MEDS ORDERED: potassium CL 10mEq/100ml bag 100 ML IV PRN (07:40)
[2019-03-04] MEDS ORDERED: magnesium 2GM in 50ml NS 50 ML IV PRN (07:40)
[2019-03-04] MEDS ORDERED: potassium Cl 20 mEq SR tablet PO PRN (07:40)
[2019-03-04] MEDS ORDERED: magnesium 4gm in 100ml NS 100 ML IV PRN (07:40)
[2019-03-04] MEDS: clopidogrel 75mg tablet PO SCH (08:34)
[2019-03-04] MEDS: lactobacillus rhamnosus 10,000 MMU CELLS/CAPSULE PO SCH ×2 (08:34→19:54)
[2019-03-04] MEDS: apixaban 5mg tablet PO SCH ×2 (08:34→19:54)
[2019-03-04] MEDS: metoprolol tartrate 25mg tablet PO SCH ×2 (08:36→19:55)
[2019-03-04] MEDS: nystatin 15 GM powder TP SCH ×3 (08:36→20:43)
[2019-03-04] MEDS: linezolid 600mg tablet PO SCH ×2 (08:36→19:55)
[2019-03-04] MEDS: ciprofloxacin 250mg tablet PO SCH (10:34)
[2019-03-04] MEDS: lactose-reduced food (Ensure High Protein) 237ml bottle PO SCH ×2 (12:56→17:58)
[2019-03-04] MEDS: magnesium Cl slow-release 64mg tablet PO PRN (12:58)
--- NOTE | 2019-03-04 14:30 | NUR ---
Sea consult: Pt will need low tyramine nutrition therapy education prior to d/c. Addendum: 03/04/19 at [address] Amended: Links added.
--- NOTE | 2019-03-04 18:22 | NUR ---
Problems reprioritized. Patient report given, questions answered & plan of care reviewed with DAVID Noriega.
--- NOTE | 2019-03-04 18:23 | NUR ---
Patient in room CICU 2013. I have received report from Jeevan HERNANDEZ and had the opportunity to ask questions and assume patient care.
[2019-03-04] MEDS ORDERED: metoprolol tartrate 25mg tablet PO SCH (20:00)
[2019-03-04] MEDS: nitroPRUSSIDE in NS 100 ML IV PRN (20:42)
[2019-03-04] MEDS: famotidine 20mg tablet PO SCH (20:43)
[2019-03-04] MEDS: amLODIPine 5mg tablet PO SCH (20:43)
--- NOTE | 2019-03-04 21:22 | NUR ---
Wound Vac suction reduced to 75mmHg, the groin site suction order strength. Wound Vac sites, groin and foot have two different suction value orders. When dressing was changed on 03/02/19 the lines were Y'd together to one suction canister and suction was set to 125mmHg which is correct for the foot dressing but not the groin site. Pt states she was told dressings were to be changed 03/05. Suction settings to be clarified.
--- NOTE | 2019-03-04 21:28 | NUR ---
Problems reprioritized. Patient report given, questions answered & plan of care reviewed with Elpidio HERNANDEZ.
[2019-03-05] VITALS (34 sets, daily range): BP systolic 104–186; BP diastolic 57–89
--- NOTE | 2019-03-05 02:59 | NUR ---
attempting to titrate the nipride gtt to off. Difficulty is when patient sleeps, SBP was ranging low 100's and I turned off the Nipride at 0030. VS remained stable. Patient requested to use the commode at 0200 - up to commode with 2 assist. Patient did most of the pivot on her own. She did quite well and with minimal pain. Gas was the only result and return to bed. SBP over 180 mmgh. I waited to see if SBP would decrease with relaxation however, patient remained 180's systolic after 10 minutes. Nipride gtt back on again at 0230 at 0.42 ug/kg/min. see VS documentation.
[2019-03-05 06:11] LABS: BASOPHILS # (AUTO) 0.1 X10'3 (0-0.2); BASOPHILS % (AUTO) 0.9 % (0-1); EOSINOPHILS # (AUTO) 0.6 X10'3 (0-0.9); EOSINOPHILS % (AUTO) 6.6 % (0-6); LYMPHOCYTES # (AUTO) 2.1 X10'3 (1.1-4.8); LYMPHOCYTES % (AUTO) 24.3 % (21-51); MEAN CORPUSCULAR HEMOGLOBIN 30.7 PG (27.0-31.0); MEAN CORPUSCULAR HGB CONC 34.9 g/dL (33.0-36.5); MEAN PLATELET VOLUME 8.1 FL (7.4-10.4); MONOCYTES # (AUTO) 1.1 X10'3 (0-0.9); NEUTROPHILS # (AUTO) 4.8 X10'3 (1.8-7.7); NEUTROPHILS % (AUTO) 55.2 % (42-75); PLATELET COUNT 219 X10'3 (140-440); RED BLOOD COUNT 2.21 X10'6 (4.20-5.60); RED CELL DISTRIBUTION WIDTH 15.3 % (11.5-14.5); WHITE BLOOD COUNT 8.8 X10'3 (4.5-11.0)
[2019-03-05 06:33] LABS: CHLORIDE 110 MMOL/L (99-107); MAGNESIUM 1.2 MG/DL (1.5-2.4); POTASSIUM 3.2 MMOL/L (3.5-5.1); SODIUM 140 MMOL/L (135-145)
[2019-03-05 06:35] LABS: HEMATOCRIT 19.5 % (35.0-45.0); HEMOGLOBIN 6.8 g/dl (12.0-16.0)
--- NOTE | 2019-03-05 06:57 | NUR ---
Patient in room ICU 2044. I have received report from Elpidio HERNANDEZ and had the opportunity to ask questions and assume patient care. Patient awake in bed and complains of no pain. Assessed wound vac and MIQUEL drain. Will continue to monitor.
--- NOTE | 2019-03-05 06:58 | NUR ---
Dr. Pope present bedside rounding on patient. Discussed critical lab of Hgb: 6.[address] Pope requests repeat hemogram in 4 hours. If Hgb is < 7, patient will need 1 unit of PRB'c.
[2019-03-05 07:06] LABS: ALBUMIN 2.8 G/DL (3.4-5.0); ANION GAP 8 (8-16); BLOOD UREA NITROGEN 14 MG/DL (7-18); BUN/CREATININE RATIO 12.8 (6.6-38.0); CALCIUM 8.3 MG/DL (8.5-10.1); CREATININE 1.09 MG/DL (0.40-0.90); GLUCOSE 105 MG/DL (70-104); TOTAL CARBON DIOXIDE 21.6 MMOL/L (24-32); eGFR 51 ML/MIN
[2019-03-05] MEDS: magnesium Cl slow-release 64mg tablet PO PRN ×2 (07:36→20:03)
[2019-03-05] MEDS: potassium Cl 20 mEq SR tablet PO PRN ×3 (07:36→20:03)
[2019-03-05] MEDS: clopidogrel 75mg tablet PO SCH (07:36)
[2019-03-05] MEDS: ciprofloxacin 250mg tablet PO SCH (07:36)
[2019-03-05] MEDS: metoprolol tartrate 25mg tablet PO SCH ×2 (07:37→20:02)
[2019-03-05] MEDS: nystatin 15 GM powder TP SCH ×3 (07:37→21:30)
[2019-03-05] MEDS: linezolid 600mg tablet PO SCH ×2 (07:37→20:02)
[2019-03-05] MEDS: lactobacillus rhamnosus 10,000 MMU CELLS/CAPSULE PO SCH ×2 (07:37→20:01)
[2019-03-05] MEDS: apixaban 5mg tablet PO SCH ×2 (07:38→20:01)
--- NOTE | 2019-03-05 07:53 | NUR ---
Per Dr. Pope d/c morales catheter.
[2019-03-05] MEDS: nitroPRUSSIDE in NS 100 ML IV PRN (08:08)
--- NOTE | 2019-03-05 08:15 | NUR ---
Administered new bottle of nitroprusside in NS 100 mL. Barcode would not scan. Verified correct medication and administered using 2 patient identifiers. Nipride infusing at 0.75 mcg/kg/min.
[2019-03-05] MEDS: K and/or MAG REPLACEMENT MC SCH (08:22)
--- NOTE | 2019-03-05 08:49 | NUR ---
Gill catheter discontinued. Patient tolerated well. Patient states no urge to void at this time. Will continue to monitor.
[2019-03-05 11:38] LABS: MEAN CORPUSCULAR HEMOGLOBIN 29.5 PG (27.0-31.0); MEAN CORPUSCULAR HGB CONC 33.6 g/dL (33.0-36.5); MEAN CORPUSCULAR VOLUME 87.7 FL (78-98); PLATELET COUNT 250 X10'3 (140-440); RED BLOOD COUNT 2.19 X10'6 (4.20-5.60); RED CELL DISTRIBUTION WIDTH 15.4 % (11.5-14.5); WHITE BLOOD COUNT 7.5 X10'3 (4.5-11.0)
[2019-03-05] MEDS: normal saline 1000ml 1,000 ML IV SCH (11:39)
[2019-03-05 11:43] LABS: HEMATOCRIT 19.3 % (35.0-45.0); HEMOGLOBIN 6.5 g/dl (12.0-16.0)
--- NOTE | 2019-03-05 11:47 | NUR ---
Critical labs: Hgb: 6.5, Hct: 19.3. Notified Dr. Pope. New orders for 1 unit of PRBC.
[2019-03-05] MEDS: lactose-reduced food (Ensure High Protein) 237ml bottle PO SCH ×2 (12:30→18:30)
--- NOTE | 2019-03-05 14:00 | NUR ---
Nipride gtt stopped. Patient SBP trending between 140/150. Paged Dr. Tafoya to clarify BP parameters.
--- NOTE | 2019-03-05 14:25 | NUR ---
[place] consult: Pt/SO seen by MARYAN for written/verbal zyvox ed. MARYAN contact information provided. Addendum: 03/05/19 at [address] Amended: Links added.
--- NOTE | 2019-03-05 16:11 | NUR ---
MIQUEL drain discontinued per MD orders. Drain tubing intact. Patient tolerated well. No bleeding. Will continue to monitor.
--- NOTE | 2019-03-05 16:50 | NUR ---
Patient's SBP 184. Nipride gtt resumed at 0.25 mcg/kg/min.
--- NOTE | 2019-03-05 18:26 | NUR ---
Problems reprioritized. Patient report given, questions answered & plan of care reviewed with Elpidio HERNANDEZ. Patient stable at time of transfer of care.
[2019-03-05 19:54] LABS: HEMATOCRIT 23.8 % (35.0-45.0); HEMOGLOBIN 8.3 g/dl (12.0-16.0); MEAN CORPUSCULAR HEMOGLOBIN 30.8 PG (27.0-31.0); MEAN CORPUSCULAR HGB CONC 34.8 g/dL (33.0-36.5); MEAN CORPUSCULAR VOLUME 88.6 FL (78-98); MEAN PLATELET VOLUME 7.8 FL (7.4-10.4); PLATELET COUNT 255 X10'3 (140-440); RED BLOOD COUNT 2.68 X10'6 (4.20-5.60); RED CELL DISTRIBUTION WIDTH 14.8 % (11.5-14.5); WHITE BLOOD COUNT 7.4 X10'3 (4.5-11.0)
[2019-03-05] MEDS: amLODIPine 5mg tablet PO SCH (21:30)
[2019-03-05] MEDS: famotidine 20mg tablet PO SCH (21:30)
[2019-03-06] VITALS (20 sets, daily range): BP systolic 120–169; BP diastolic 56–97
[2019-03-06] MEDS: normal saline 1000ml 1,000 ML IV SCH (02:00)
--- NOTE | 2019-03-06 06:51 | NUR ---
Patient in room ICU 2044. I have received report from Elpidio HERNANDEZ and had the opportunity to ask questions and assume patient care.
[2019-03-06] MEDS: lactobacillus rhamnosus 10,000 MMU CELLS/CAPSULE PO SCH ×2 (07:54→19:37)
[2019-03-06] MEDS: metoprolol tartrate 25mg tablet PO SCH ×2 (07:54→19:38)
[2019-03-06] MEDS: clopidogrel 75mg tablet PO SCH (07:54)
[2019-03-06] MEDS: ciprofloxacin 250mg tablet PO SCH (07:54)
[2019-03-06] MEDS: apixaban 5mg tablet PO SCH ×2 (07:54→19:37)
[2019-03-06] MEDS: linezolid 600mg tablet PO SCH ×2 (07:54→19:36)
[2019-03-06] MEDS: nystatin 15 GM powder TP SCH ×3 (07:55→19:42)
[2019-03-06] MEDS: K and/or MAG REPLACEMENT MC SCH (07:57)
--- NOTE | 2019-03-06 09:04 | NUR ---
Dr. Lewis to see pt. States pt. can move out of ICU if ok with Dr. Yeager.
[2019-03-06] MEDS: lactose-reduced food (Ensure High Protein) 237ml bottle PO SCH ×2 (12:30→19:48)
--- NOTE | 2019-03-06 14:34 | NUR ---
Dr. Yeager here to see pt. States pt. can go to Surgical without tele monitoring.
--- NOTE | 2019-03-06 14:52 | NUR ---
RN spoke with Destiny in case management who stated pt. has been accepted at [facility] and will plan to go there tomorrow. RN spoke with case management per Dr. Yeager's request.
--- NOTE | 2019-03-06 16:44 | NUR ---
Received report from Margaret in ICU. Waiting for pt. to arrive to surgical floor.
--- NOTE | 2019-03-06 17:03 | NUR ---
Report given to Elizabeth HERNANDEZ on surgical floor[facility] belongings including meds and chart in stable condition.
--- NOTE | 2019-03-06 18:14 | NUR ---
Gave report to Laura HERNANDEZ. Pt. states she has not received dinner yet. Calling ICU to f/u on her dinner tray.
--- NOTE | 2019-03-06 18:30 | NUR ---
Patient in room [facility] 349. I have received report from TANYA HERNANDEZ and had the opportunity to ask questions and assume patient care.
[2019-03-06] MEDS: famotidine 20mg tablet PO SCH (19:37)
[2019-03-06] MEDS: amLODIPine 5mg tablet PO SCH (19:37)
[2019-03-07] VITALS: BP 157/75
[2019-03-07 05:47] LABS: ALBUMIN 3.3 G/DL (3.4-5.0); ANION GAP 10 (8-16); BLOOD UREA NITROGEN 23 MG/DL (7-18); BUN/CREATININE RATIO 15.9 (6.6-38.0); CALCIUM 9.7 MG/DL (8.5-10.1); CHLORIDE 103 MMOL/L (99-107); CREATININE 1.45 MG/DL (0.40-0.90); GLUCOSE 125 MG/DL (70-104); MAGNESIUM 1.3 MG/DL (1.5-2.4); PHOSPHORUS 4.7 MG/DL (2.3-4.5); POTASSIUM 3.8 MMOL/L (3.5-5.1); SODIUM 136 MMOL/L (135-145); TOTAL CARBON DIOXIDE 22.7 MMOL/L (24-32); eGFR 36 ML/MIN
[2019-03-07 05:55] LABS: BASOPHILS # (AUTO) 0.1 X10'3 (0-0.2); BASOPHILS % (AUTO) 0.8 % (0-1); EOSINOPHILS # (AUTO) 0.7 X10'3 (0-0.9); EOSINOPHILS % (AUTO) 8.6 % (0-6); HEMATOCRIT 27.7 % (35.0-45.0); HEMOGLOBIN 9.7 g/dl (12.0-16.0); LYMPHOCYTES # (AUTO) 1.9 X10'3 (1.1-4.8); LYMPHOCYTES % (AUTO) 22.6 % (21-51); MEAN CORPUSCULAR HEMOGLOBIN 30.5 PG (27.0-31.0); MEAN CORPUSCULAR HGB CONC 34.9 g/dL (33.0-36.5); MEAN CORPUSCULAR VOLUME 87.4 FL (78-98); MEAN PLATELET VOLUME 7.5 FL (7.4-10.4); MONOCYTES # (AUTO) 0.8 X10'3 (0-0.9); MONOCYTES % (AUTO) 9.1 % (2-12); NEUTROPHILS # (AUTO) 4.9 X10'3 (1.8-7.7); NEUTROPHILS % (AUTO) 58.9 % (42-75); PLATELET COUNT 369 X10'3 (140-440); RED BLOOD COUNT 3.17 X10'6 (4.20-5.60); WHITE BLOOD COUNT 8.4 X10'3 (4.5-11.0)
--- NOTE | 2019-03-07 06:23 | NUR ---
Problems reprioritized. Patient report given, questions answered & plan of care reviewed with JARON HERNANDEZ.
--- NOTE | 2019-03-07 06:50 | NUR ---
Patient in room [facility] 349. I have received report from Lissette Mclaughlin RN and had the opportunity to ask questions and assume patient care.
[2019-03-07 07:00] VITALS: BP 130/75
[2019-03-07] MEDS: nystatin 15 GM powder TP SCH ×2 (08:00→13:26)
[2019-03-07] MEDS: K and/or MAG REPLACEMENT MC SCH (08:00)
[2019-03-07] MEDS: metoprolol tartrate 25mg tablet PO SCH (09:08)
[2019-03-07] MEDS: linezolid 600mg tablet PO SCH (09:09)
[2019-03-07] MEDS: apixaban 5mg tablet PO SCH (09:09)
[2019-03-07] MEDS: ciprofloxacin 250mg tablet PO SCH (09:09)
[2019-03-07] MEDS: lactobacillus rhamnosus 10,000 MMU CELLS/CAPSULE PO SCH (09:09)
[2019-03-07] MEDS: clopidogrel 75mg tablet PO SCH (09:09)
[2019-03-07 11:00] VITALS: BP_SYST 119; BP_SYST 141; BP_DIAS 61; BP_DIAS 80
--- NOTE | 2019-03-07 12:19 | NUR ---
Wound team POC. Asked by nurse to assess vac dressing as patient is preparing for possible discharge to a [facility] for rehab today and she states the left groin drape has lifted slightly. Assessed dressing, cleansed the area and reinforced the dressing. Educated pt on plan of care and vac placement and care at future facilities. Pt and her state that they have no questions at this time. Bed left in lowest position, call light and personal items within reach. Addendum: 03/07/19 at 1233 by Divya East RN Amended: Links added.
[2019-03-07] MEDS: lactose-reduced food (Ensure High Protein) 237ml bottle PO SCH (12:51)
--- NOTE | 2019-03-07 14:04 | NUR ---
Reassessment: Pt continues with fluctuations in PO intake recently 50-75% however documented at 100% PO intake at breakfast this morning. Pt with 25% and 100% PO intake of Ensure High Protein on 03/05 however refused all on 03/06. Pt seen at bedside with [facility] present. Pt endorses a good appetite and reports not drinking ONS d/t not liking it however states she has been drinking Premier Protein brought in from SO once a day. Pt reports she is discharging to rehab soon. Pt continues with wound VAC. Encouraged pt to continue with high protein diet for wound healing needs. Pt with no questions at this time. LBM 03/06. Will continue to follow. Rec: 1. continue heart healthy diet 2. Ensure High Protein BIDLD 3. MVI for wounds 4. wt per rx Addendum: 03/07/19 at [address] Amended: Links added.
--- NOTE | 2019-03-07 14:38 | NUR ---
Called Dr Godinez office per Dr Don request for follow up appointment Office number is [phone] spoke with Lindy. She is requesting a referal with MRI results and Discharge summary. Fax number is [phone] Don office at [phone] and requested they send information and referal to office. I faxed MRI results to Aretha at Dr Don office and gave her patients husbands phone number.
--- NOTE | 2019-03-07 14:58 | NUR ---
Called Francheska CLIFFORD at [facility] and gave patient report. Patients IV dc'd cannula intact. Patient was connected to home wound vac 75 mmHg low continous
--- NOTE | 2019-03-07 15:05 | NUR ---
Called patients Doug and gave him phone numbers for Dr Sanchez office and that I spoke to Lindy and Dr Don office and that I spoke to Aretha and for him to call and follow up if he has not heard from them . Patient Doug `states he has also been in contact with Dr Méndez office for follow up.
--- NOTE | 2019-03-07 16:02 | NUR ---
Francheska shen/ anjana worley aware of all phone numbers to follow up patients appointments with Dr Sanchez, neurologist, Dr Yeager surgeon, and Dr Méndez for ortho surgery.
== END 2019-03-07 14:15 | DRG 856 ==
LOC: ER 11:51 → SUR 3N 15:45 → PACU 02-22 16:30 → SUR 3N 02-22 17:36 → CICU 2S 03-03 09:00 → ICU 2S 03-04 19:26 → SUR 3N 03-06 16:55
PROVIDERS: ADMIT Internal Medicine; ATTEND Internal Medicine Critical Care Medicine
PROC: B4201ZZ Computerized Tomography (CT Scan) of Abdominal Aorta using Low Osmolar Contrast (ICD-10-PCS; 2019-02-15)
PROC: B42H1ZZ Computerized Tomography (CT Scan) of Bilateral Lower Extremity Arteries using Low Osmolar Contrast (ICD-10-PCS; 2019-02-15)
PROC: B42H1ZZ Computerized Tomography (CT Scan) of Bilateral Lower Extremity Arteries using Low Osmolar Contrast (ICD-10-PCS; 2019-02-15)
PROC: 0YB60ZZ Excision of Left Inguinal Region, Open Approach (ICD-10-PCS; 2019-02-17)
PROC: 0Y6N0Z9 Detachment at Left Foot, Partial 1st Ray, Open Approach (ICD-10-PCS; 2019-02-22)
PROC: 0Y6N0ZB Detachment at Left Foot, Partial 2nd Ray, Open Approach (ICD-10-PCS; 2019-02-22)
PROC: 0Y6N0ZC Detachment at Left Foot, Partial 3rd Ray, Open Approach (ICD-10-PCS; 2019-02-22)
PROC: 0Y6N0ZD Detachment at Left Foot, Partial 4th Ray, Open Approach (ICD-10-PCS; 2019-02-22)
PROC: 0Y6N0ZF Detachment at Left Foot, Partial 5th Ray, Open Approach (ICD-10-PCS; 2019-02-22)
PROC: 30233N1 Transfusion of Nonautologous Red Blood Cells into Peripheral Vein, Percutaneous Approach (ICD-10-PCS; principal; 2019-02-23)
PROC: 30233N1 Transfusion of Nonautologous Red Blood Cells into Peripheral Vein, Percutaneous Approach (ICD-10-PCS; 2019-02-24)
PROC: 30233N1 Transfusion of Nonautologous Red Blood Cells into Peripheral Vein, Percutaneous Approach (ICD-10-PCS; 2019-03-03)
PROC: 3E0T3BZ Introduction of Anesthetic Agent into Peripheral Nerves and Plexi, Percutaneous Approach (ICD-10-PCS; 2019-03-03)
PROC: 03CN0ZZ Extirpation of Matter from Left External Carotid Artery, Open Approach (ICD-10-PCS; 2019-03-03)
PROC: 03CJ0ZZ Extirpation of Matter from Left Common Carotid Artery, Open Approach (ICD-10-PCS; 2019-03-03)
PROC: 03CL0ZZ Extirpation of Matter from Left Internal Carotid Artery, Open Approach (ICD-10-PCS; 2019-03-03)
PROC: 03UJ0KZ Supplement Left Common Carotid Artery with Nonautologous Tissue Substitute, Open Approach (ICD-10-PCS; 2019-03-03)
PROC: 03UL0KZ Supplement Left Internal Carotid Artery with Nonautologous Tissue Substitute, Open Approach (ICD-10-PCS; 2019-03-03)
PROC: 03UN0KZ Supplement Left External Carotid Artery with Nonautologous Tissue Substitute, Open Approach (ICD-10-PCS; 2019-03-03)
PROC: 30233N1 Transfusion of Nonautologous Red Blood Cells into Peripheral Vein, Percutaneous Approach (ICD-10-PCS; 2019-03-05)
DX: T81.41XA Infection following a procedure, superficial incisional surgical site, initial encounter (principal); N17.0 Acute kidney failure with tubular necrosis; E11.52 Type 2 diabetes mellitus with diabetic peripheral angiopathy with gangrene; D62 Acute posthemorrhagic anemia; L03.314 Cellulitis of groin; I96 Gangrene, not elsewhere classified; N18.4 Chronic kidney disease, stage 4 (severe); T81.30XA Disruption of wound, unspecified, initial encounter; I99.8 Other disorder of circulatory system; E11.22 Type 2 diabetes mellitus with diabetic chronic kidney disease; B95.2 Enterococcus as the cause of diseases classified elsewhere; F41.9 Anxiety disorder, unspecified; I67.1 Cerebral aneurysm, nonruptured; J44.9 Chronic obstructive pulmonary disease, unspecified; Y83.2 Surgical operation with anastomosis, bypass or graft as the cause of abnormal reaction of the patient, or of later complication, without mention of misadventure at the time of the procedure; R33.9 Retention of urine, unspecified; E87.6 Hypokalemia; S10.93XA Contusion of unspecified part of neck, initial encounter; X58.XXXA Exposure to other specified factors, initial encounter; Y92.238 Other place in hospital as the place of occurrence of the external cause; H53.8 Other visual disturbances; I12.9 Hypertensive chronic kidney disease with stage 1 through stage 4 chronic kidney disease, or unspecified chronic kidney disease; I65.22 Occlusion and stenosis of left carotid artery; Z79.01 Long term (current) use of anticoagulants; Z90.5 Acquired absence of kidney; Y92.89 Other specified places as the place of occurrence of the external cause; Z79.899 Other long term (current) drug therapy; Y99.8 Other external cause status; Y93.89 Activity, other specified
CPT/HCPCS: 96365; 99285; Z7506; 36415; 70450; 70490; 70544; 70547; 70551; 71045; 72191; 73706; 76775; 80048; 80053; 80202; 81003; 82570; 83605; 83735; 84100; 84132; 84145; 84300; 85025; 85027; 85610; 85730; 86885; 86900; 86901; 86920; 87040; 87070; 87077; 87186; 87207; 93005; 93880; 95813; 95816; 97110; 97116; 97161; 97530; A6257; A6258; A7000; C1768; C1887; G0378; J0690; J1100; J1644; J2001; J2060; J2250; J2370; J2405; J2543; J2704; J2710; J2720; J3010; J3370; J3475; J3480; J3490; J7030; J7120; P9016; Q0163; Q9967